=== PATIENT | female | born 1995 | race Caucasian/White ===

== ENCOUNTER 2017-08-18 13:31 | Inpatient (IN) | payer OTHER ==
[~2017-08-18] VITALS: Ht 170.2 cm; Wt 58.5 kg
[2017-08-18] MEDS ORDERED: KETOROLAC TROMETHAMINE 30 MG/ML VIAL IV STA (13:52)
[2017-08-18] MEDS ORDERED: AMPICILLIN/SULBACTAM SOD INJ 3,000 MG in SODIUM CHLORIDE 0.9% 100ML 100 ML IV ONE (14:00)
[2017-08-18] MEDS ORDERED: MoRPHine SULFATE 4 MG/ML 1 ML CARP\\VIAL IV STA (14:01)
--- NOTE | 2017-08-18 14:21 | DIAGNOSTIC IMAGING REPORT ---
CHEST ONE VIEW PORTABLE CLINICAL HISTORY: 22 years-old Female presenting with fever, chest pain. TECHNIQUE: Portable upright AP view of the chest was obtained. COMPARISON: None. FINDINGS: Cardiomediastinal silhouette normal. Lungs and pleural spaces clear. Osseous structures normal. Upper abdomen normal. IMPRESSION: 1. No acute cardiopulmonary disease. Electronically signed by: Chris Marcum M.D. 08/18/2017 2:19 PM Dictated Date/Time: 08/18/2017 2:19 PM
[2017-08-18] MEDS ORDERED: CLON0.5T3 PO (14:23)
[2017-08-18] MEDS ORDERED: TRAZ50TA35 PO (14:23)
[2017-08-18] MEDS ORDERED: DOXY100C76 PO (14:23)
[2017-08-18] MEDS ORDERED: PRED20TA2 PO (14:23)
[2017-08-18] MEDS ORDERED: SERT-234 PO (14:23)
[2017-08-18] MEDS ORDERED: QVRINH80 INH (14:23)
[2017-08-18 14:38] LABS: ISTAT IONIZED CALCIUM 1.11 mmol/l; ISTAT POTASSIUM 3.2 mEq/L (3.3-5.0)
[2017-08-18 14:51] LABS: HEMATOCRIT 37.9 % (37-47); HEMOGLOBIN 12.8 g/dL (12.0-16.0); MEAN CELL VOLUME 83.3 fL (80-100); MEAN CORPUSCULAR HEMOGLOBIN 28.1 pg (25-34); MEAN CORPUSCULAR HGB CONC 33.8 g/dl (32-36); PLATELET COUNT 330 K/uL (130-400); RED CELL DISTRIBUTION WIDTH CV 14.2 % (11.5-14.5); WHITE BLOOD COUNT 36.64 K/uL (4.8-10.8)
[2017-08-18 15:01] LABS: ALBUMIN 2.9 gm/dl (3.4-5.0); ALT/SGPT 9 U/L (12-78); BLOOD UREA NITROGEN 10 mg/dl (7-18); CARBON DIOXIDE 27 mmol/L (21-32); CREATININE 1.15 mg/dl (0.60-1.20); GLUCOSE 121 mg/dl (70-99); POTASSIUM 3.1 mmol/L (3.5-5.1); SODIUM 128 mmol/L (136-145)
[2017-08-18 15:06] LABS: ALKALINE PHOSPHATASE 99 U/L (45-117); AST/SGOT 17 U/L (15-37); CKMB < 0.5 ng/ml (0.5-3.6); TOTAL PROTEIN 7.9 gm/dl (6.4-8.2)
--- NOTE | 2017-08-18 15:19 | DIAGNOSTIC IMAGING REPORT ---
L BREAST LIMITED UNILATERAL CLINICAL HISTORY: 22 years-old Female presenting with r/o abscess, recent diagnosis of mastitis in the left breast, increasing left breast pain. TECHNIQUE: Real-time grayscale Doppler ultrasound imaging of the left breast was performed for a focused evaluation at the site of clinical concern. Color Doppler ultrasound imaging was also performed. COMPARISON: None. FINDINGS: Diffusely heterogeneous fat. Additionally a focal irregular hypoechoic 5.5 x 5.2 x 3.7 cm masslike region with internal vascularity on power Doppler in the subareolar region. Subcutaneous edema also noted evidence by dilated lymphatics. IMPRESSION: 1. Findings suggest significant inflammatory changes or phlegmonous changes in the subareolar region. No well-defined abscess evidenced by internal vascularity of the hypoechoic region delineated on ultrasound. No drainable fluid collection. Electronically signed by: Chris Marcum M.D. 08/18/2017 3:17 PM Dictated Date/Time: 08/18/2017 3:15 PM
[2017-08-18 15:28] LABS: BASO % 0.1 %; BASO ABS # 0.04 K/uL (0-0.2); IG# 0.43 K/uL (0.00-0.02); LYMPH % 1.9 %; MONO % 6.3 %; NEUT % 90.5 %; NEUT ABS # 33.17 K/uL (1.4-6.5)
[2017-08-18] MEDS ORDERED: VANCOMYCIN 1GM ED/ASU OMNICELL IV STA (15:29)
[2017-08-18 15:53] VITALS: O2SAT 99; Ht 170.2 cm; Wt 58.5 kg
[2017-08-18] MEDS ORDERED: ALUMINUM/MAGNESIUM/SIMETH (MAALOX MAX) 30 ML UDC PO PRN (16:15)
[2017-08-18] MEDS ORDERED: MAGNESIUM HYDROXIDE SUSP 30 ML UDC PO PRN (16:15)
[2017-08-18] MEDS ORDERED: TRAZODONE HCL 50 MG TAB PO PRN (16:15)
[2017-08-18] MEDS ORDERED: PIPERACILL/TAZOBAC CONSULT ACTIVE PRN (16:15)
[2017-08-18] MEDS ORDERED: VANCOMYCIN CONSULT ACTIVE PRN (16:15)
--- NOTE | 2017-08-18 16:27 | History and Physical ---
History & Physical Date & Time of Service: Aug 18, 2017 at 16:15 Chief Complaint: Chest Pain, Infection In Boob Primary Care Physician: No Doctor, Assigned History of Present Illness 22 years old female with Hx of asthma and anxiety p/w left breast cellulitis. she was in a trip for [place] 10 days ago but she did not get into the ocean , just swam in the pool. had a bee sting in her right hand but no other insects bites one week ago she had an asthma attack for which she was taking prednisone and inhalers. 3 days ago she started having pain and swelling in her left breast. she went to urgent care facility yesterday and was given doxycyclin which failed to control her symptoms. her left breast continues to progress and later developed erythema and swelling in that breast. no discharge, no abrasions or skin cuts. also has painful LN in her left axilla. did not check her temp but has been feeling hot and feverish. she has been taking tylenol for that. she does not have diabetes. Past Medical/Surgical History Medical Problems: (1) Acute mastitis of left breast (2) Asthma exacerbation Family History Patient reports no known family medical history. Social History Smoking Status: Never Smoker Drug Use: none Marital Status: in relationship Occupational Status: [employer] student Allergies Coded Allergies: Amoxicillin (Verified Allergy, Unknown, vomiting, 07/19/17) Home Medications Scheduled Beclomethasone Dip (Qvar), 1 PUFF INH DAILY Clonazepam (Klonopin), 0.5 MG PO NEEDED Doxycycline Monohydrate (Monodox), 100 MG PO BID Prednisone (Prednisone Tab), 20 MG PO DIRECTED Sertraline (Zoloft), 150 MG PO DAILY Trazodone Hcl (Trazodone), 50 MG PO NEEDED Review of Systems Review of system Constitutional: positive fever /chills / sweats / no weakness / no fatigue Eyes: no blurring of vision / no eye pain / no discharge / no redness ENT: no hearing loss / no epistaxis /no swallowing problems Respiratory: no cough / no wheezing / no SOB / no hemoptysis Left breast swollen/erythematous and painful, no discharge Cardiovascular: no Chest pain / no lower extremity edema / no palpitation Abdomen: no pain / no nausea / no vomiting / no constipation Musculoskeletal: no joint pain / no muscle pain / no joint swelling Genitourinary: no dysuria / no incontinence / no urinary retention Neurologic: no focal weakness / no numbness/tingling / no ataxia Psychiatric: no depression symptoms / no anxiety / no insomnia Endocrine: no excessive thirst / no excessive urination Hematologic: no abnormal bleeding / no bruising / no LN swelling Skin: No rash / no pallor Physical Exam Vital Signs Date Time Temp Pulse Resp B/P (MAP) Pulse Ox O2 Delivery O2 Flow Rate FiO2 08/18/17 15:29 111 112/64 99 Room Air 08/18/17 14:10 122 109/91 99 Room Air 08/18/17 13:37 36.7 127 18 116/67 99 Room Air Physical examination Left breast swollen/erythematous and tender, no discharge (examined in the presence of her mother and the nurse) General patient appears to be comfortable, not in acute distress HEENT: Atraumatic , normocephalic /no jaundice /no pallor /anicteric /no dry mucous membrane /normal external ear inspection Neck: Supple /no swelling /central trach Heart: S1/S2 normal/regular rate and rhythm/no gallop /no rub /no murmur Lungs: Clear to auscultation bilaterally/normal chest with expansion/no rhonchi/ no rales/no wheezing/no use of accessory muscles of respiration Abdomen: Soft/nontender/no guarding/no rebound/no organomegaly/no pulsatile mass Musculoskeletal: No swelling/no edema/no tenderness/normal range of motion Neuro exam: Awake alert oriented 3/cranial nerves II through XII appear to be intact/sensation intact/moves all extremities/no abnormal movements Psychiatric evaluation: No depressed mood/normal affect Skin: No rash on exposed skin area/no erythema Extremity: Normal pulse/no pitting edema/no clubbing or cyanosis Endocrine/lymphatic: No obvious lymphadenopathy /no lymphedema Diagnostics Laboratory Results Results Past 24 Hours Test 08/18/17 14:15 08/18/17 14:19 08/18/17 14:21 Range/Units White Blood Count 36.64 4.8-10.8 K/uL Red Blood Count 4.55 4.2-5.4 M/uL Hemoglobin 12.8 12.0-16.0 g/dL Hematocrit 37.9 37-47 % Mean Corpuscular Volume 83.3 80-100 fL Mean Corpuscular Hemoglobin 28.1 25-34 pg Mean Corpuscular Hemoglobin Concent 33.8 32-36 g/dl Platelet Count 330 130-400 K/uL Mean Platelet Volume 10.0 7.4-10.4 fL Neutrophils (%) (Auto) 90.5 % Lymphocytes (%) (Auto) 1.9 % Monocytes (%) (Auto) 6.3 % Eosinophils (%) (Auto) 0.0 % Basophils (%) (Auto) 0.1 % Neutrophils # (Auto) 33.17 1.4-6.5 K/uL Lymphocytes # (Auto) 0.70 1.2-3.4 K/uL Monocytes # (Auto) 2.30 0.11-0.59 K/uL Eosinophils # (Auto) 0.00 0-0.5 K/uL Basophils # (Auto) 0.04 0-0.2 K/uL RDW Standard Deviation 43.0 36.4-46.3 fL RDW Coefficient of Variation 14.2 11.5-14.5 % Immature Granulocyte % (Auto) 1.2 % Immature Granulocyte # (Auto) 0.43 0.00-0.02 K/uL Dohle Bodies 1+ Large Platelets 1+ Prothrombin Time 10.9 9.0-12.0 SECONDS Prothromb Time International Ratio 1.0 0.9-1.1 Sodium Level 128 136-145 mmol/L Potassium Level 3.1 3.5-5.1 mmol/L Chloride Level 92 98-107 mmol/L Carbon Dioxide Level 27 21-32 mmol/L Anion Gap 9.0 15.0 16-25 mmol/L Blood Urea Nitrogen 10 7-18 mg/dl Creatinine 1.15 0.60-1.20 mg/dl Est Creatinine Clear Calc Drug Dose 72.1 ml/min Estimated GFR () 79.3 Estimated GFR (Non- 68.4 BUN/Creatinine Ratio 9.0 10-20 Random Glucose 121 70-99 mg/dl Calcium Level 9.0 8.5-10.1 mg/dl Magnesium Level 1.9 1.8-2.4 mg/dl Total Bilirubin 0.6 0.2-1 mg/dl Direct Bilirubin 0.2 0-0.2 mg/dl Aspartate Amino Transf (AST/SGOT) 17 15-37 U/L Alanine Aminotransferase (ALT/SGPT) 9 12-78 U/L Alkaline Phosphatase 99 45-117 U/L Total Creatine Kinase 40 26-192 U/L Creatine Kinase MB < 0.5 0.5-3.6 ng/ml Creatine Kinase MB Ratio 0-3.0 Troponin I < 0.015 0-0.045 ng/ml Total Protein 7.9 6.4-8.2 gm/dl Albumin 2.9 3.4-5.0 gm/dl Bedside Hemoglobin 13.6 12.0-16.0 g/dl Bedside Hematocrit 40 37-47 % Bedside Sodium 130 135-144 mEq/L Bedside Potassium 3.2 3.3-5.0 mEq/L Bedside Chloride 92 101-112 mEq/L Bedside Total CO2 27 24-31 mEq/l Bedside Blood Urea Nitrogen 10 7-18 mg/dl Bedside Creatinine 1.0 mg/dl Bedside Glucose (other) 137 70-99 mg/dl Bedside Ionized Calcium (Maverick) 1.11 mmol/l Bedside Lactic Acid Venous 1.60 0.90-1.70 mmol/L Microbiology Results 08/18/17 Blood Culture, Received Pending 08/18/17 Blood Culture, Received Pending Impression Assessment and Plan 22 years old female with Hx of asthma and anxiety p/w acute left breast cellulitis. assessment: severe sepsis POA secondary to below acute left breast cellulitis. Asthma without exacerbation Anxiety Plan left breast US was negative for abscess but I think it needs to be repeated before discharge admit to [facility] consult ID initiate Vanco/zosyn (failed doxycyclin) IVF hydration blood Cx motrin q8 HOURS X 2 days morphine prn severe pain lovenox for DVT prophylaxis check HgbA1C R/O underlying diabetes Resuscitation Status VTE Prophylaxis Will order VTE Prophylaxis: Yes
[2017-08-18] MEDS ORDERED: POTASSIUM CHLORIDE 20 MEQ TABCR PO ONE (17:00)
[2017-08-18] MEDS ORDERED: POTASSIUM CHLORIDE 10 MEQ TABCR ONE (17:01)
[2017-08-18 17:27] VITALS: BP 109/60; PULSE 112; TEMP 38.2; O2SAT 99
[2017-08-18] MEDS: ACETAMINOPHEN 325 MG TAB PO PRN (17:34)
--- NOTE | 2017-08-18 18:17 | EMERGENCY ROOM VISIT NOTE ---
History Report prepared by Peewee: Darline bIanez Under the Supervision of: Dr. Glen Mas D.O. First contact with patient: 13:42 Chief Complaint: INFECTION Stated Complaint: CHEST PAIN, INFECTION IN BOOB History of Present Illness The patient is a 22 year old female who presents to the Emergency Room with complaints of increased swelling to her left breast beginning , three days ago. The patient went to [facility] yesterday and was told she had an infection in her left breast and was put on doxycycline. The patient notes pain and redness to her left breast. The patient states she had an asthma attack last week where she was given a nebulizer and a steroid. She reports she started to have chest pain on and she thought she had bruising on her left breast. Since , her left breast has been increasingly swollen and tender. She denies any discharge from her breast. She reports her pain worsens with taking a deep breath. The patient notes a cough, hot and cold sweats, back pain, and neck pain. The patient denies any recent trauma. The patient was in [place] two weeks ago. Pt denies headache, change in vision, fevers, shortness of breath, nausea, vomiting, diarrhea, pain with urination, and melena. Source of History: patient Onset: 3 days ago Position: other (left breast) Quality: other (swelling) Timing: other (increasing) Modifying Factors (Worsening): breathing Associated Symptoms: + chest pain, + back pain, No fevers, No SOB, No nausea , No urinary symptoms Review of Systems See HPI for pertinent positives & negatives. A total of 10 systems reviewed and were otherwise negative. Past Medical & Surgical Medical Problems: (1) Acute mastitis of left breast Family History Patient reports no known family medical history. Social History Smoking Status: Never Smoker Drug Use: none Marital Status: in relationship Occupation Status: [employer] student Current/Historical Medications Scheduled Beclomethasone Dip (Qvar), 1 PUFF INH DAILY Clonazepam (Klonopin), 0.5 MG PO NEEDED Doxycycline Monohydrate (Monodox), 100 MG PO BID Prednisone (Prednisone Tab), 20 MG PO DIRECTED Sertraline (Zoloft), 150 MG PO DAILY Trazodone Hcl (Trazodone), 50 MG PO NEEDED Allergies Coded Allergies: Amoxicillin (Verified Adverse Reaction, Mild, vomiting, 08/18/17) Physical Exam Vital Signs Date Time Temp Pulse Resp B/P (MAP) Pulse Ox O2 Delivery O2 Flow Rate FiO2 08/18/17 15:53 99 Room Air 08/18/17 15:29 111 112/64 99 Room Air 08/18/17 14:10 122 109/91 99 Room Air 08/18/17 13:37 36.7 127 18 116/67 99 Room Air Physical Exam GENERAL: Sitting up in bed, alert, well appearing, well nourished, no distress, non-toxic EYE EXAM: normal conjunctiva. OROPHARYNX: no exudate, no erythema, lips, buccal mucosa, and tongue normal and mucous membranes are moist NECK: supple, no nuchal rigidity, no adenopathy, non-tender LUNGS: Clear to auscultation. Normal chest wall mechanics HEART: Tachycardic, no murmurs, S1 normal and S2 normal CHEST: Left breast slight engorged and erythematous in lateral superior aspect without drainage or induration. Mild bruising on right superior aspect of left breast. ABDOMEN: abdomen soft, non-tender, normo-active bowel sounds, no masses, no rebound or guarding. BACK: Back is symmetrical on inspection and there is no deformity, no midline tenderness, no CVA tenderness. SKIN: no rashes and no bruising UPPER EXTREMITIES: upper extremities are grossly normal. LOWER EXTREMITIES: No pitting edema. NEURO EXAM: Normal sensorium, cranial nerves II-XII grossly intact, normal speech, no gross weakness of arms, no gross weakness of legs. Medical Decision & Procedures ER Provider Diagnostic Interpretation: Radiology results as stated below per my review and the radiologist's interpretation: L BREAST LIMITED UNILATERAL COMPARISON: None. FINDINGS: Diffusely heterogeneous fat. Additionally a focal irregular hypoechoic 5.5 x 5.2 x 3.7 cm masslike region with internal vascularity on power Doppler in the subareolar region. Subcutaneous edema also noted evidence by dilated lymphatics. IMPRESSION: 1. Findings suggest significant inflammatory changes or phlegmonous changes in the subareolar region. No well-defined abscess evidenced by internal vascularity of the hypoechoic region delineated on ultrasound. No drainable fluid collection. Electronically signed by: Chris Marcum M.D. CHEST ONE VIEW PORTABLE FINDINGS: Cardiomediastinal silhouette normal. Lungs and pleural spaces clear. Osseous structures normal. Upper abdomen normal. IMPRESSION: 1. No acute cardiopulmonary disease. Electronically signed by: Chris Marcum M.D. Laboratory Results 08/18/17 14:15 Red Blood Count 4.55, Mean Corpuscular Volume 83.3, Mean Corpuscular Hemoglobin 28.1, Mean Corpuscular Hemoglobin Concent 33.8, Mean Platelet Volume 10.0, Neutrophils (%) (Auto) 90.5, Lymphocytes (%) (Auto) 1.9, Monocytes (%) (Auto) 6.3, Eosinophils (%) (Auto) 0.0, Basophils (%) (Auto) 0.1, Neutrophils # (Auto) 33.17, Lymphocytes # (Auto) 0.70, Monocytes # (Auto) 2.30, Eosinophils # (Auto) 0.00, Basophils # (Auto) 0.04 08/18/17 14:15 Test 08/18/17 14:15 08/18/17 14:19 08/18/17 14:21 White Blood Count 36.64 K/uL (4.8-10.8) Red Blood Count 4.55 M/uL (4.2-5.4) Hemoglobin 12.8 g/dL (12.0-16.0) Hematocrit 37.9 % (37-47) Mean Corpuscular Volume 83.3 fL (80-100) Mean Corpuscular Hemoglobin 28.1 pg (25-34) Mean Corpuscular Hemoglobin Concent 33.8 g/dl (32-36) Platelet Count 330 K/uL (130-400) Mean Platelet Volume 10.0 fL (7.4-10.4) Neutrophils (%) (Auto) 90.5 % Lymphocytes (%) (Auto) 1.9 % Monocytes (%) (Auto) 6.3 % Eosinophils (%) (Auto) 0.0 % Basophils (%) (Auto) 0.1 % Neutrophils # (Auto) 33.17 K/uL (1.4-6.5) Lymphocytes # (Auto) 0.70 K/uL (1.2-3.4) Monocytes # (Auto) 2.30 K/uL (0.11-0.59) Eosinophils # (Auto) 0.00 K/uL (0-0.5) Basophils # (Auto) 0.04 K/uL (0-0.2) RDW Standard Deviation 43.0 fL (36.4-46.3) RDW Coefficient of Variation 14.2 % (11.5-14.5) Immature Granulocyte % (Auto) 1.2 % Immature Granulocyte # (Auto) 0.43 K/uL (0.00-0.02) Dohle Bodies 1+ Large Platelets 1+ Erythrocyte Sedimentation Rate 86 mm/hr (0-21) Prothrombin Time 10.9 SECONDS (9.0-12.0) Prothromb Time International Ratio 1.0 (0.9-1.1) Est Creatinine Clear Calc Drug Dose 72.1 ml/min Estimated GFR () 79.3 Estimated GFR (Non- 68.4 BUN/Creatinine Ratio 9.0 (10-20) Calcium Level 9.0 mg/dl (8.5-10.1) Magnesium Level 1.9 mg/dl (1.8-2.4) Total Bilirubin 0.6 mg/dl (0.2-1) Direct Bilirubin 0.2 mg/dl (0-0.2) Aspartate Amino Transf (AST/SGOT) 17 U/L (15-37) Alanine Aminotransferase (ALT/SGPT) 9 U/L (12-78) Alkaline Phosphatase 99 U/L (45-117) Total Creatine Kinase 40 U/L (26-192) Creatine Kinase MB < 0.5 ng/ml (0.5-3.6) Creatine Kinase MB Ratio (0-3.0) Troponin I < 0.015 ng/ml (0-0.045) C-Reactive Protein 33.30 mg/dl (0-0.29) Total Protein 7.9 gm/dl (6.4-8.2) Albumin 2.9 gm/dl (3.4-5.0) Bedside Hemoglobin 13.6 g/dl (12.0-16.0) Bedside Hematocrit 40 % (37-47) Bedside Sodium 130 mEq/L (135-144) Bedside Potassium 3.2 mEq/L (3.3-5.0) Bedside Chloride 92 mEq/L (101-112) Bedside Total CO2 27 mEq/l (24-31) Anion Gap 15.0 mmol/L (16-25) Bedside Blood Urea Nitrogen 10 mg/dl (7-18) Bedside Creatinine 1.0 mg/dl Bedside Glucose (other) 137 mg/dl (70-99) Bedside Ionized Calcium (Maverick) 1.11 mmol/l Bedside Lactic Acid Venous 1.60 mmol/L (0.90-1.70) Laboratory results per my review. Medications Administered Medications (Trade) Dose Ordered Sig/Gisella Route Start Time Stop Time Status Last Admin Dose Admin Ketorolac Tromethamine (Toradol Inj) 30 mg NOW STAT IV 08/18/17 13:52 08/18/17 13:53 DC 08/18/17 14:11 30 MG Ampicillin Sodium/ Sulbactam Sodium 3000 mg/Sodium Chloride 108 ml @ 200 mls/hr ONE ONCE IV 08/18/17 14:00 08/18/17 14:32 DC 08/18/17 14:35 200 MLS/HR Morphine Sulfate (MoRPHine SULFATE INJ) 4 mg NOW STAT IV 08/18/17 14:01 08/18/17 14:02 DC 08/18/17 14:11 4 MG Vancomycin HCl (Vancomycin 1gm/ 270ml Nss) 1 gm NOW STAT IV 08/18/17 15:29 08/18/17 15:35 DC 08/18/17 15:56 1 GM ECG Per My Interpretation Indication: chest pain Rate (beats per minute): 116 Rhythm: sinus tachycardia Findings: other (No PVC normal intervals) ED Course ED COURSE: Vital signs were reviewed and showed tachycardic The patients medical record was reviewed The above diagnostic studies were performed and reviewed. ED treatments and interventions as stated above. 1342: The patient was evaluated in room A11B. A complete history and physical examination was performed. 1352: Ordered Toradol Inj 30 mg IV. 1400: Ordered Ampicillin Sodium/Sulbactam Sodium 3000 mg/Sodium CHlorise 108 ml @ 200 mls/hr IV. 1401: Ordered Morphine Sulfate 4 mg IV. 1519: The patient is over at ultrasound. 1529: Ordered Vancomycin HCL 1 gm IV. 1533: I updated the patient on the treatment plan. 1546: I reviewed the patient's case [place] Te[place] [place] will evaluate the patient for further management. 1550: Upon reevaluation, the patient is resting comfortably.I discussed my findings with the patient and she understands and agrees with the treatment plan. Based on the patients age, coexisting illnesses, exam and lab findings the decision to treat as an inpatient was made. The patient remained stable while under my care. The patient will be evaluated for further management. Medical Decision Differential diagnosis: Etiologies such as cellulitis, abscess, MRSA infection, DVT, necrotizing fasciitis, dermatitis, drug eruption, as well as others were entertained. Patient is a 22-year-old female who presents the ER who presents the ER for severe pain in the left breast. On exam she has an overt cellulitis. She is tachycardic. White count 35,000. IV was established as blood work was previously drawn. Sodium was slightly low 128. Patient was given IV antibiotics, fluids and admitted to internal medicine following ultrasound which showed cellulitis. She is likely septic secondary to the left breast cellulitis. Medication Reconcilliation Current Medication List: was personally reviewed by me Blood Pressure Screening Patient's blood pressure: Normal blood pressure Consults Time Called: 1540 Consulting Physician: Dr. Tere Kang Returned Call: 1545 I reviewed the patient's case with Dr. Tere Kang. He will evaluate the patient for further management. Impression Primary Impression: Sepsis Additional Impressions: Mastitis Hypokalemia Scribe Attestation The scribe's documentation has been prepared under my direction and personally reviewed by me in its entirety. I confirm that the note above accurately reflects all work, treatment, procedures, and medical decision making performed by me. Departure Information Dispostion Being Evaluated By Hospitalist Referrals No Doctor, Assigned (PCP) Patient Instructions My [facility] Problem Qualifiers Primary Impression: Sepsis Sepsis type: sepsis due to unspecified organism Qualified Codes: A41.9 - Sepsis, unspecified organism
[2017-08-18] MEDS: LACTOBACILLUS ACIDOPHILUS (FLORANEX) TAB PO SCH (18:29)
[2017-08-18] MEDS: NSS + 20MEQ KCL 1000ML 1,000 ML IV SCH (18:29)
[2017-08-18] MEDS: MoRPHine SULFATE 2 MG/ML CARP IV PRN ×2 (18:46→23:50)
[2017-08-18 19:00] VITALS: TEMP 39; O2SAT 99
--- NOTE | 2017-08-18 19:03 | Pharmacy Progress Note ---
Pharmacy Antibiotic Consult Date of Service: Aug 18, 2017. Pharmacy Dosing Scope Pharmacy is consulted to initiate Vancomycin/Zosyn IV dosing therapy, order appropriate labs and adjust drug dose/frequency. Subjective The patient is a 22 year old female admitted on Aug 18, 2017 at 16:14 with left breast cellulitis/mastitis. Objective Height (Feet): 5 Height (Inches): 7.00 Weight (Kilograms): 58.500 Lab Results (24hrs): Test 08/18/17 14:15 08/18/17 14:19 08/18/17 14:21 08/18/17 17:00 White Blood Count 36.64 K/uL (4.8-10.8) Red Blood Count 4.55 M/uL (4.2-5.4) Hemoglobin 12.8 g/dL (12.0-16.0) Hematocrit 37.9 % (37-47) Mean Corpuscular Volume 83.3 fL (80-100) Mean Corpuscular Hemoglobin 28.1 pg (25-34) Mean Corpuscular Hemoglobin Concent 33.8 g/dl (32-36) Platelet Count 330 K/uL (130-400) Mean Platelet Volume 10.0 fL (7.4-10.4) Neutrophils (%) (Auto) 90.5 % Lymphocytes (%) (Auto) 1.9 % Monocytes (%) (Auto) 6.3 % Eosinophils (%) (Auto) 0.0 % Basophils (%) (Auto) 0.1 % Neutrophils # (Auto) 33.17 K/uL (1.4-6.5) Lymphocytes # (Auto) 0.70 K/uL (1.2-3.4) Monocytes # (Auto) 2.30 K/uL (0.11-0.59) Eosinophils # (Auto) 0.00 K/uL (0-0.5) Basophils # (Auto) 0.04 K/uL (0-0.2) RDW Standard Deviation 43.0 fL (36.4-46.3) RDW Coefficient of Variation 14.2 % (11.5-14.5) Immature Granulocyte % (Auto) 1.2 % Immature Granulocyte # (Auto) 0.43 K/uL (0.00-0.02) Dohle Bodies 1+ Large Platelets 1+ Erythrocyte Sedimentation Rate 86 mm/hr (0-21) Prothrombin Time 10.9 SECONDS (9.0-12.0) Prothromb Time International Ratio 1.0 (0.9-1.1) Sodium Level 128 mmol/L (136-145) Potassium Level 3.1 mmol/L (3.5-5.1) Chloride Level 92 mmol/L (98-107) Carbon Dioxide Level 27 mmol/L (21-32) Anion Gap 9.0 mmol/L (3-11) 15.0 mmol/L (16-25) Blood Urea Nitrogen 10 mg/dl (7-18) Creatinine 1.15 mg/dl (0.60-1.20) Est Creatinine Clear Calc Drug Dose 72.1 ml/min Estimated GFR () 79.3 Estimated GFR (Non- 68.4 BUN/Creatinine Ratio 9.0 (10-20) Random Glucose 121 mg/dl (70-99) Calcium Level 9.0 mg/dl (8.5-10.1) Magnesium Level 1.9 mg/dl (1.8-2.4) Total Bilirubin 0.6 mg/dl (0.2-1) Direct Bilirubin 0.2 mg/dl (0-0.2) Aspartate Amino Transf (AST/SGOT) 17 U/L (15-37) Alanine Aminotransferase (ALT/SGPT) 9 U/L (12-78) Alkaline Phosphatase 99 U/L (45-117) Total Creatine Kinase 40 U/L (26-192) Creatine Kinase MB < 0.5 ng/ml (0.5-3.6) Creatine Kinase MB Ratio (0-3.0) Troponin I < 0.015 ng/ml (0-0.045) C-Reactive Protein 33.30 mg/dl (0-0.29) Total Protein 7.9 gm/dl (6.4-8.2) Albumin 2.9 gm/dl (3.4-5.0) Bedside Hemoglobin 13.6 g/dl (12.0-16.0) Bedside Hematocrit 40 % (37-47) Bedside Sodium 130 mEq/L (135-144) Bedside Potassium 3.2 mEq/L (3.3-5.0) Bedside Chloride 92 mEq/L (101-112) Bedside Total CO2 27 mEq/l (24-31) Bedside Blood Urea Nitrogen 10 mg/dl (7-18) Bedside Creatinine 1.0 mg/dl Bedside Glucose (other) 137 mg/dl (70-99) Bedside Ionized Calcium (Maverick) 1.11 mmol/l Bedside Lactic Acid Venous 1.60 mmol/L (0.90-1.70) Urine Color DK YELLOW Urine Appearance CLEAR (CLEAR) Urine pH 5.5 (4.5-7.5) Urine Specific [place] 1.023 (1.000-1.030) Urine Protein 2+ (NEG) Urine Glucose (UA) NEG (NEG) Urine Ketones TRACE (NEG) Urine Occult Blood NEG (NEG) Urine Nitrite NEG (NEG) Urine Bilirubin NEG (NEG) Urine Urobilinogen NEG (NEG) Urine Leukocyte Esterase NEG (NEG) Urine WBC (Auto) 5-10 /hpf (0-5) Urine RBC (Auto) 0-4 /hpf (0-4) Urine Hyaline Casts (Auto) 10-30 /lpf (0-5) Urine Epithelial Cells (Auto) >30 /lpf (0-5) Urine Bacteria (Auto) NEG (NEG) Urine Renal Epithelial Cells 0-5 /lpf (0-5) Micro Results: Item Value Date Time Blood Culture Received 08/18/17 1429 Blood Pending Blood Culture Received 08/18/17 1415 Blood Pending Recent Pertinent Medications Item Value Date Time Ampicillin Sodium/ 108 ml @ 200 mls/hr 08/18/17 1400 Sulbactam Sodium ONE ONCE/IV 08/18/17 1435 3000 mg/Sodium Chloride Vancomycin HCl 1 gm 08/18/17 1529 (Vancomycin 1gm/ NOW STAT/IV 08/18/17 1556 270ml Nss) Piperacillin Sod/ 115 ml @ 28.75 mls/hr 08/18/17 2000 Tazobactam Sod Q8H/IV 3.375 gm/Dextrose Assessment & Plan Loading dose: Vancomycin 1000 mg (~17 mg/kg) IV X 1 dose then: Vancomycin 1000 mg IV every 12 hours. Goal peak level estimate: between 30 - 40 mcg/mL. Goal trough level estimate: between 13 - 20 mcg/mL. Trough or random level has been ordered for: 08/21/17 before the noon dose. Zosyn 3.375 g Extended infusion every 8 hours for creatinine clearance greater than 20 mL/min Pharmacy will continue to follow and will adjust dose/frequency as necessary. Thank you
[2017-08-18] MEDS ORDERED: IBUPROFEN 200 MG TAB PO ONE (19:30)
[2017-08-18] MEDS ORDERED: NURSING VERBAL MED ORDER ONE (19:30)
[2017-08-18] MEDS: PIPERACILL/TAZOBAC IV 3.375 GM in DEXTROSE 5% 100ML 100 ML IV SCH (20:27)
[2017-08-18] MEDS: CLONAZEPAM 0.5 MG TAB PO SCH (20:33)
[2017-08-18] MEDS: IBUPROFEN 200 MG TAB PO SCH (20:33)
[2017-08-18] MEDS: ENOXAPARIN 30 MG/0.3 ML SYR SQ SCH (20:35)
[2017-08-18 21:22] VITALS: PULSE 110; TEMP 37.6; O2SAT 98
[2017-08-18 23:05] VITALS: BP 100/60; PULSE 112; TEMP 37.3; O2SAT 95
[2017-08-18 23:35] VITALS: TEMP 37.1
[2017-08-18] MEDS: VANCOMYCIN IV 1,000 MG in SODIUM CHLORIDE 0.9% 250ML 250 ML IV SCH (23:50)
[2017-08-19] MEDS: PIPERACILL/TAZOBAC IV 3.375 GM in DEXTROSE 5% 100ML 100 ML IV SCH ×3 (04:09→20:27)
[2017-08-19 04:49] VITALS: TEMP 36.7
[2017-08-19] MEDS: MoRPHine SULFATE 2 MG/ML CARP IV PRN ×3 (05:05→23:47)
[2017-08-19] MEDS: ACETAMINOPHEN 325 MG TAB PO PRN (05:46)
[2017-08-19 06:58] LABS: HEMATOCRIT 39.7 % (37-47); HEMOGLOBIN 13.4 g/dL (12.0-16.0); MEAN CELL VOLUME 83.2 fL (80-100); MEAN CORPUSCULAR HEMOGLOBIN 28.1 pg (25-34); MEAN CORPUSCULAR HGB CONC 33.8 g/dl (32-36); MEAN PLATELET VOLUME 9.7 fL (7.4-10.4); PLATELET COUNT 288 K/uL (130-400); RED CELL DISTRIBUTION WIDTH CV 14.5 % (11.5-14.5); RED CELL DISTRIBUTION WIDTH SD 44.5 fL (36.4-46.3); WHITE BLOOD COUNT 37.91 K/uL (4.8-10.8)
[2017-08-19 07:07] VITALS: BP 96/59; PULSE 99; TEMP 36.8; O2SAT 98
[2017-08-19 07:08] LABS: ALBUMIN 2.3 gm/dl (3.4-5.0); CALCIUM 8.7 mg/dl (8.5-10.1); CREATININE 1.07 mg/dl (0.60-1.20); POTASSIUM 3.5 mmol/L (3.5-5.1)
[2017-08-19 07:15] LABS: TOTAL PROTEIN 6.8 gm/dl (6.4-8.2)
[2017-08-19 07:19] LABS: BASO % 0.2 %; BASO ABS # 0.06 K/uL (0-0.2); EOS % 0.3 %; EOS ABS # 0.13 K/uL (0-0.5); IG# 0.64 K/uL (0.00-0.02); LYMPH % 1.9 %; LYMPH ABS # 0.73 K/uL (1.2-3.4); MONO % 3.4 %; MONO ABS # 1.28 K/uL (0.11-0.59); NEUT % 92.5 %; NEUT ABS # 35.07 K/uL (1.4-6.5)
[2017-08-19 07:45] LABS: HEMOGLOBIN A1C 5.5 % (4.5-5.6)
[2017-08-19] MEDS ORDERED: FAMOTIDINE IV INJ 20 MG in SYRINGE 3 ML IV SCH (09:00)
[2017-08-19] MEDS ORDERED: FAMOTIDINE IV INJ 20 MG in DEXTROSE 5% 100ML 100 ML IV SCH (09:00)
[2017-08-19] MEDS: CLONAZEPAM 0.5 MG TAB PO SCH ×2 (09:01→20:27)
[2017-08-19] MEDS: SERTRALINE HCL 50 MG TAB PO SCH (09:01)
[2017-08-19] MEDS: BECLOMETHASONE DIP HFA 80 MCG 8.7G INH INH SCH (09:01)
[2017-08-19] MEDS: IBUPROFEN 200 MG TAB PO SCH ×3 (09:01→20:28)
[2017-08-19] MEDS: LACTOBACILLUS ACIDOPHILUS (FLORANEX) TAB PO SCH ×3 (09:02→17:55)
[2017-08-19] MEDS: ENOXAPARIN 30 MG/0.3 ML SYR SQ SCH ×2 (09:02→20:32)
--- NOTE | 2017-08-19 09:27 | Hospitalist Progress Note ---
Hospitalist Progress Note Date of Service Aug 19, 2017. (Kayley Baltazar PA-C) Subjective Pt evaluation today including: conversation w/ patient, conversation w/ family , physical exam, chart review, lab review, review of studies Pain: None PO Intake: Good Voiding: no voiding problems The patient was seen and examined this morning. Pt reports still feeling that her breathing is somewhat tight, and that she has difficulty taking deep breaths due to pain in bilateral chest murrell. She denies feeling acutely short of breath at rest or with ambulation with walking. She has been up ambulating the ybarra without difficulty. She has been using proair and QVar routinely as an outpatient for her asthma. Pt left breast seems to be less red today, but still as swollen. She denies any pain involving her left axillary region. She denies any feeling of fever or chills overnight. Additional Comments: Constitutional: No fever, sweats or chills Eyes: No diplopia, no worsening or blurred vision ENT: normal hearing, no trouble swallowing Respiratory: No cough, sputum, dyspnea at rest or on exertion Cardiovascular: No chest pain, tightness or palpitations Abdomen: No pain, nausea, vomiting, diarrhea or constipation Musculoskeletal: No joint pain, calf pain, swelling Neurologic: No weakness, numbness/tingling, or balance problems Psychiatric: No anxiety or depression Skin: No rash or itch (Kayley Baltazar PA-C) Objective Vital Signs Date Time Temp Pulse Resp B/P (MAP) Pulse Ox O2 Delivery O2 Flow Rate FiO2 08/19/17 07:40 Room Air 08/19/17 07:07 36.8 99 15 96/59 (71) 98 Room Air 08/19/17 04:49 36.7 08/18/17 23:35 Room Air 08/18/17 23:35 37.1 08/18/17 23:05 37.3 112 16 100/60 (73) 95 Room Air 08/18/17 21:22 37.6 110 28 98 08/18/17 19:00 99 Room Air 08/18/17 19:00 39.0 08/18/17 17:27 38.2 112 40 109/60 (76) 99 Room Air 08/18/17 17:14 111 113/60 96 3/25/18 15:53 99 Room Air 08/18/17 15:29 111 112/64 99 Room Air 08/18/17 14:10 122 109/91 99 Room Air 08/18/17 13:37 36.7 127 18 116/67 99 Room Air (Kayley Baltazar PA-C) Physical Exam Notes: General: awake, alert, no apparent distress Head: Normocephalic, atraumatic ENT: PERRL, EOMI, no pharyngeal exudate, mucous membranes moist Chest: Clear to auscultation, on room air, no adventitious breath sounds. Breast: Left breast with erythema from the 1oclock to 5 oclock region, slight extension toward axillary region but does not involve axilla. + significantly tender with light palpation, no involvement of the nipple, no open area, no lesions, no topical abrasion, no ecchymosis. Right breast without involvement. Cardiac: Regular rate and rhythm, no murmur, no JVD, normal peripheral pulses, good capillary refill Abdominal: NABS x 4 quadrants, soft, nontender to palpation, no rebound, guarding or tenderness Extremities: Normal inspection, no peripheral edema or erythema, calfs nontender to palpation Psych: Normal mood and affect Neuro: AAO x 3, strength intact bilaterally and related 5/5, no motor deficits, speech is clear, no peripheral sensory deficits (Kayley Baltazar, PAULINO) Laboratory Results Last 24 Hours Test 08/18/17 14:15 08/18/17 14:19 08/18/17 14:21 08/18/17 17:00 White Blood Count 36.64 K/uL Red Blood Count 4.55 M/uL Hemoglobin 12.8 g/dL Hematocrit 37.9 % Mean Corpuscular Volume 83.3 fL Mean Corpuscular Hemoglobin 28.1 pg Mean Corpuscular Hemoglobin Concent 33.8 g/dl Platelet Count 330 K/uL Mean Platelet Volume 10.0 fL Neutrophils (%) (Auto) 90.5 % Lymphocytes (%) (Auto) 1.9 % Monocytes (%) (Auto) 6.3 % Eosinophils (%) (Auto) 0.0 % Basophils (%) (Auto) 0.1 % Neutrophils # (Auto) 33.17 K/uL Lymphocytes # (Auto) 0.70 K/uL Monocytes # (Auto) 2.30 K/uL Eosinophils # (Auto) 0.00 K/uL Basophils # (Auto) 0.04 K/uL RDW Standard Deviation 43.0 fL RDW Coefficient of Variation 14.2 % Immature Granulocyte % (Auto) 1.2 % Immature Granulocyte # (Auto) 0.43 K/uL Dohle Bodies 1+ Large Platelets 1+ Erythrocyte Sedimentation Rate 86 mm/hr Prothrombin Time 10.9 SECONDS Prothromb Time International Ratio 1.0 Sodium Level 128 mmol/L Potassium Level 3.1 mmol/L Chloride Level 92 mmol/L Carbon Dioxide Level 27 mmol/L Anion Gap 9.0 mmol/L 15.0 mmol/L Blood Urea Nitrogen 10 mg/dl Creatinine 1.15 mg/dl Est Creatinine Clear Calc Drug Dose 72.1 ml/min Estimated GFR () 79.3 Estimated GFR (Non- 68.4 BUN/Creatinine Ratio 9.0 Random Glucose 121 mg/dl Calcium Level 9.0 mg/dl Magnesium Level 1.9 mg/dl Total Bilirubin 0.6 mg/dl Direct Bilirubin 0.2 mg/dl Aspartate Amino Transf (AST/SGOT) 17 U/L Alanine Aminotransferase (ALT/SGPT) 9 U/L Alkaline Phosphatase 99 U/L Total Creatine Kinase 40 U/L Creatine Kinase MB < 0.5 ng/ml Creatine Kinase MB Ratio Troponin I < 0.015 ng/ml C-Reactive Protein 33.30 mg/dl Total Protein 7.9 gm/dl Albumin 2.9 gm/dl Bedside Hemoglobin 13.6 g/dl Bedside Hematocrit 40 % Bedside Sodium 130 mEq/L Bedside Potassium 3.2 mEq/L Bedside Chloride 92 mEq/L Bedside Total CO2 27 mEq/l Bedside Blood Urea Nitrogen 10 mg/dl Bedside Creatinine 1.0 mg/dl Bedside Glucose (other) 137 mg/dl Bedside Ionized Calcium ([place]) 1.11 mmol/l Bedside Lactic Acid Venous 1.60 mmol/L Urine Color DK YELLOW Urine Appearance CLEAR Urine pH 5.5 Urine Specific [place] 1.023 Urine Protein 2+ Urine Glucose (UA) NEG Urine Ketones TRACE Urine Occult Blood NEG Urine Nitrite NEG Urine Bilirubin NEG Urine Urobilinogen NEG Urine Leukocyte Esterase NEG Urine WBC (Auto) 5-10 /hpf Urine RBC (Auto) 0-4 /hpf Urine Hyaline Casts (Auto) 10-30 /lpf Urine Epithelial Cells (Auto) >30 /lpf Urine Bacteria (Auto) NEG Urine Renal Epithelial Cells 0-5 /lpf Test 08/19/17 06:02 White Blood Count 37.91 K/uL Red Blood Count 4.77 M/uL Hemoglobin 13.4 g/dL Hematocrit 39.7 % Mean Corpuscular Volume 83.2 fL Mean Corpuscular Hemoglobin 28.1 pg Mean Corpuscular Hemoglobin Concent 33.8 g/dl Platelet Count 288 K/uL Mean Platelet Volume 9.7 fL Neutrophils (%) (Auto) 92.5 % Lymphocytes (%) (Auto) 1.9 % Monocytes (%) (Auto) 3.4 % Eosinophils (%) (Auto) 0.3 % Basophils (%) (Auto) 0.2 % Neutrophils # (Auto) 35.07 K/uL Lymphocytes # (Auto) 0.73 K/uL Monocytes # (Auto) 1.28 K/uL Eosinophils # (Auto) 0.13 K/uL Basophils # (Auto) 0.06 K/uL RDW Standard Deviation 44.5 fL RDW Coefficient of Variation 14.5 % Immature Granulocyte % (Auto) 1.7 % Immature Granulocyte # (Auto) 0.64 K/uL Sodium Level 131 mmol/L Potassium Level 3.5 mmol/L Chloride Level 98 mmol/L Carbon Dioxide Level 27 mmol/L Anion Gap 6.0 mmol/L Blood Urea Nitrogen 12 mg/dl Creatinine 1.07 mg/dl Est Creatinine Clear Calc Drug Dose 77.5 ml/min Estimated GFR () 86.5 Estimated GFR (Non- 74.7 BUN/Creatinine Ratio 11.1 Random Glucose 105 mg/dl Estimated Average Glucose 111 mg/dl Hemoglobin A1c 5.5 % Calcium Level 8.7 mg/dl Magnesium Level 1.8 mg/dl Total Bilirubin 0.6 mg/dl Aspartate Amino Transf (AST/SGOT) 12 U/L Alanine Aminotransferase (ALT/SGPT) 8 U/L Alkaline Phosphatase 114 U/L Total Protein 6.8 gm/dl Albumin 2.3 gm/dl Globulin 4.5 gm/dl Albumin/Globulin Ratio 0.5 (Kayley Baltazar, PAULINO) Assessment and Plan Severe sepsis POA secondary to below Acute left breast cellulitis. - left breast US was negative for abscess- may need repeat if worsening appearance or develops area of fluctuance - WBC elevated at 37.9K with left shift, - Continue Vanco/zosyn (started on 08/18 ) -failed doxycycline x 3 days as outpt - Tmax = 39 last night at 7pm, monitor - ID consulted - appreciate recs. - Continue motrin and ms IV for breakthrough pain - encourage ambulation and incentive spirometry - A1C = 5.5 Asthma without exacerbation - Continue proair and Qvar, duonebs QID prn for sob Anxiety - Continue klonopin 0.5 mg Q12H, trazodone 50 mg HS prn insomnia, sertraline 150 mg QAM - pt follows with psychiatry in [facility]. DVT ppx: lovenox Code STATUS: FULL CODE (Kayley Baltazar, PAULINO) Supervising Note Dr. Guajardo I performed a history and physical examination on the patient. I reviewed above note and agree with it. I discussed plan with APC and patient. During my face to face encounter with the patient, I answered all of the patient's questions. Patient was examined in company of her nurse. I agree with above description of her left breast. Patient continues to complain of neck pain. Will give a onetime dose of an additional 400 mg of ibuprofen. Pain appears to be on her rhomboid. Did not find any trigger points on her left back. Will continue to monitor. May consider Flexeril tomorrow. Also will consult gen surgery for her ultrasound finding of a possible mass in her left breast. (Alon Guajardo M.D.)
--- NOTE | 2017-08-19 11:15 | Progress Note ---
Progress Note Date of Service Aug 19, 2017. Progress Note ID Consult Dictated #[id number] A/P: 1. Left breast cellulitis 2. Leukocytosis - likely infection + steroids 3. Asthma exac -Continue abx, follow blood cultures -Would suggest surgical eval -Follow cultures, cbc, was recently started on nebs and steroids [employer] for asthma -Pt requesting neb treatment -Thank you
[2017-08-19] MEDS: VANCOMYCIN IV 1,000 MG in SODIUM CHLORIDE 0.9% 250ML 250 ML IV SCH ×2 (12:24→23:46)
[2017-08-19] MEDS ORDERED: ALBUT/IPRATROP 3MG/0.5MG NEB 3 ML VIAL INH PRN (15:00)
[2017-08-19 15:04] VITALS: BP 106/65; PULSE 101; TEMP 36.7; O2SAT 94
[2017-08-19] MEDS: NSS + 20MEQ KCL 1000ML 1,000 ML IV SCH ×2 (15:10→17:19)
[2017-08-19] MEDS ORDERED: IBUPROFEN 200 MG TAB PO STA (15:40)
--- NOTE | 2017-08-19 17:17 | Surgery Consultation ---
Consultation Date of Consultation: Aug 19, 2017. Attending Physician: Alon Guajardo M.D. History of Present Illness pt is a 22 eligio old female who was admitted to hospital for acute cellulitis on left breast. pt started have left breast pain and redness 5 days ago, pt had T 39 last night, now pt feels better, but pt is still have left breast pain, pt denies fever, no chills, no nipple discharge, denies trauma history. pt was on po prednisone for her asthma attack last week. . Past Medical/Surgical History Medical Problems: (1) Asthma exacerbation Status: Acute (2) Hypokalemia Status: Acute (3) Mastitis Status: Acute (4) Sepsis Status: Acute Family History Patient reports no known family medical history. Social History Smoking Status: Never Smoker Smokeless Tobacco Use: No Alcohol Use: none Drug Use: none Marital Status: in relationship Occupation Status: [employer] student Allergies Coded Allergies: Amoxicillin (Verified Adverse Reaction, Mild, vomiting, 08/18/17) Home Medications Scheduled Beclomethasone Dip (Qvar), 1 PUFF INH DAILY Clonazepam (Klonopin), 0.5 MG PO NEEDED Doxycycline Monohydrate (Monodox), 100 MG PO BID Prednisone (Prednisone Tab), 20 MG PO DIRECTED Sertraline (Zoloft), 150 MG PO DAILY Trazodone Hcl (Trazodone), 50 MG PO NEEDED Current Inpatient Medications Current Inpatient Medications Medications (Trade) Dose Ordered Sig/Gisella Route Start Time Stop Time Status Last Admin Dose Admin Beclomethasone Dipropionate (Qvar 80 Mcg Hfa Inhaler) 1 puffs DAILY INH 08/19/17 09:00 09/18/17 08:59 08/19/17 09:01 1 PUFFS Clonazepam (Klonopin Tab) 0.5 mg Q12H PO 08/18/17 21:00 09/17/17 20:59 08/19/17 09:01 0.5 MG Sertraline HCl (Zoloft Tab) 150 mg DAILY PO 08/19/17 09:00 09/18/17 08:59 08/19/17 09:01 150 MG Trazodone HCl (Desyrel Tab) 50 mg HS PRN PO 08/18/17 16:15 09/17/17 16:14 Enoxaparin Sodium (Lovenox Inj) 30 mg Q12 SQ 08/18/17 21:00 09/17/17 20:59 08/19/17 09:02 30 MG Acetaminophen (Tylenol Tab) 650 mg Q4H PRN PO 08/18/17 16:15 09/17/17 16:14 08/19/17 05:46 650 MG Al Hydrox/Mg Hydrox/Simethicone (Maalox Max Susp) 15 ml Q4H PRN PO 08/18/17 16:15 09/17/17 16:14 Magnesium Hydroxide (Milk Of Magnesia Susp) 30 ml Q6H PRN PO 08/18/17 16:15 09/17/17 16:14 Morphine Sulfate (MoRPHine SULFATE INJ) 1 mg Q4H PRN IV 08/18/17 16:15 09/01/17 16:14 08/19/17 12:35 1 MG Ibuprofen (Advil Tab) 200 mg TID PO 08/18/17 21:00 08/19/17 21:00 08/19/17 13:39 200 MG Potassium Chloride/Sodium Chloride 1,000 ml @ 80 mls/hr [id number] IV 08/18/17 17:45 09/17/17 17:44 08/18/17 18:29 80 MLS/HR Piperacillin Sod/ Tazobactam Sod 3.375 gm/Dextrose 115 ml @ 28.75 mls/ hr Q8H IV 08/18/17 20:00 08/28/17 19:59 08/19/17 12:24 28.75 MLS/HR Miscellaneous Information (Consult) 1 ea UD PRN N/A 08/18/17 16:15 09/17/17 16:14 Vancomycin HCl 1000 mg/Sodium Chloride 270 ml @ 125 mls/hr Q12H IV 08/19/17 00:00 08/28/17 15:29 08/19/17 12:24 125 MLS/HR Miscellaneous Information (Consult) 1 ea UD PRN N/A 08/18/17 16:15 09/17/17 16:14 Lactobacillus Acidophilus (Floranex Tab) 4 tab TIDM PO 08/18/17 17:45 09/17/17 17:59 08/19/17 12:25 4 TAB Famotidine (Pepcid Tab) 20 mg DAILY PO 08/20/17 09:00 09/19/17 08:59 Albuterol/ Ipratropium (Duoneb) 3 ml QID PRN INH 08/19/17 15:00 09/18/17 14:59 Review of Systems Constitutional: + fever Eyes: No worsening of vision, No eye pain, No redness, No discharge, No diplopia, No problem reported ENT: No hearing loss, No unusual epistaxis, No nasal symptoms, No sore throat, No tinnitus, No dental problems, No trouble swallowing, No problem reported Respiratory: + problem reported (asthma), No cough, No sputum, No wheezing, No shortness of breath, No dyspnea on exertion, No dyspnea at rest, No hemoptysis Cardiovascular: + chest pain, + orthopnea, No PND, No edema, No claudication, No palpitations, No problem reported Abdomen: No pain, No nausea, No vomiting, No diarrhea, No constipation, No GI bleeding, No problem reported Musculoskeletal: No joint pain, No muscle pain, No swelling, No calf pain, No problem reported Genitourinary - Female: No dysuria, No urinary frequency, No urinary urgency, No urinary incontinence, No urinary retention, No hematuria, No dysmenorrhea, No menorrhagia, No metrorrhagia, No rash, No vaginal bleeding, No vaginal discharge, No vaginal itching, No vulvodynia, No , No problem reported Neurologic: No memory loss, No paralysis, No weakness, No numbness/tingling, No vertigo, No balance problems, No problem reported Psychiatric: No depression symptoms, No anhedonism, No anxiety, No insomnia, No substance abuse, No problem reported Endocrine: No fatigue, No excessive thirst, No excessive urination, No problem reported Hematologic / Lymphatic: No abnormal bleeding/bruising, No clotting problems, No swollen lymph nodes, No night sweats, No problem reported Integumentary: No rash, No itch, No new/changing skin lesions, No color change , No bleeding, No problem reported Physical Exam Date Time Temp Pulse Resp B/P (MAP) Pulse Ox O2 Delivery O2 Flow Rate FiO2 08/19/17 15:15 Room Air 08/19/17 15:04 36.7 101 16 106/65 (79) 94 Room Air 08/19/17 07:40 Room Air 08/19/17 07:07 36.8 99 15 96/59 (71) 98 Room Air 08/19/17 04:49 36.7 08/18/17 23:35 Room Air 08/18/17 23:35 37.1 08/18/17 23:05 37.3 112 16 100/60 (73) 95 Room Air 08/18/17 21:22 37.6 110 28 98 08/18/17 19:00 99 Room Air 08/18/17 19:00 39.0 08/18/17 17:27 38.2 112 40 109/60 (76) 99 Room Air 08/18/17 17:14 111 113/60 96 General Appearance: WD/WN, no apparent distress Head: normocephalic Eyes: normal inspection ENT: normal ENT inspection Neck: supple, no JVD Respiratory/Chest: chest non-tender, lungs clear Cardiovascular: regular rate, rhythm, no edema, no gallop, no JVD, no murmur Abdomen/GI: normal bowel sounds, non tender, soft, no organomegaly Extremities/Musculoskelatal: normal inspection, no calf tenderness, normal capillary refill Neurologic/Psych: no motor/sensory deficits, alert, normal mood/affect (left side breast, redness tenderness, at 1 to 5 o'clock, no drainage from nipple, no enlarge lymph node on left axillary. ) Laboratory Results Last 24 Hours Test 08/19/17 06:02 White Blood Count 37.91 K/uL Red Blood Count 4.77 M/uL Hemoglobin 13.4 g/dL Hematocrit 39.7 % Mean Corpuscular Volume 83.2 fL Mean Corpuscular Hemoglobin 28.1 pg Mean Corpuscular Hemoglobin Concent 33.8 g/dl Platelet Count 288 K/uL Mean Platelet Volume 9.7 fL Neutrophils (%) (Auto) 92.5 % Lymphocytes (%) (Auto) 1.9 % Monocytes (%) (Auto) 3.4 % Eosinophils (%) (Auto) 0.3 % Basophils (%) (Auto) 0.2 % Neutrophils # (Auto) 35.07 K/uL Lymphocytes # (Auto) 0.73 K/uL Monocytes # (Auto) 1.28 K/uL Eosinophils # (Auto) 0.13 K/uL Basophils # (Auto) 0.06 K/uL RDW Standard Deviation 44.5 fL RDW Coefficient of Variation 14.5 % Immature Granulocyte % (Auto) 1.7 % Immature Granulocyte # (Auto) 0.64 K/uL Sodium Level 131 mmol/L Potassium Level 3.5 mmol/L Chloride Level 98 mmol/L Carbon Dioxide Level 27 mmol/L Anion Gap 6.0 mmol/L Blood Urea Nitrogen 12 mg/dl Creatinine 1.07 mg/dl Est Creatinine Clear Calc Drug Dose 77.5 ml/min Estimated GFR () 86.5 Estimated GFR (Non- 74.7 BUN/Creatinine Ratio 11.1 Random Glucose 105 mg/dl Estimated Average Glucose 111 mg/dl Hemoglobin A1c 5.5 % Calcium Level 8.7 mg/dl Magnesium Level 1.8 mg/dl Total Bilirubin 0.6 mg/dl Aspartate Amino Transf (AST/SGOT) 12 U/L Alanine Aminotransferase (ALT/SGPT) 8 U/L Alkaline Phosphatase 114 U/L Total Protein 6.8 gm/dl Albumin 2.3 gm/dl Globulin 4.5 gm/dl Albumin/Globulin Ratio 0.5 Assessment & Plan L BREAST LIMITED UNILATERAL CLINICAL HISTORY: 22 years-old Female presenting with r/o abscess, recent diagnosis of mastitis in the left breast, increasing left breast pain. TECHNIQUE: Real-time grayscale Doppler ultrasound imaging of the left breast was performed for a focused evaluation at the site of clinical concern. Color Doppler ultrasound imaging was also performed. COMPARISON: None. FINDINGS: Diffusely heterogeneous fat. Additionally a focal irregular hypoechoic 5.5 x 5.2 x 3.7 cm masslike region with internal vascularity on power Doppler in the subareolar region. Subcutaneous edema also noted evidence by dilated lymphatics. IMPRESSION: 1. Findings suggest significant inflammatory changes or phlegmonous changes in the subareolar region. No well-defined abscess evidenced by internal vascularity of the hypoechoic region delineated on ultrasound. No drainable fluid collection. Assessment: pt is a 22 year old female who was admitted to hospital for left breast cellulitis, IMP: left breast cellulitis, small abscess? Plan, repeat U/S study, if any fluid collection present, pt needs I/D. repeat labs in am, will F/U, D/W the plan with pt and her Mom they agree with the plan, I answered all questions,
--- NOTE | 2017-08-19 21:53 | INFECT. DISEASE CONSULTATION ---
DATE OF CONSULTATION: 08/19/2017 HISTORY OF PRESENT ILLNESS: This is a 22-year-old female who was admitted to the hospital with worsening left breast cellulitis. She recently had an asthma exacerbation and was being followed at an urgent care center. She was given prednisone with inhalers and also received a nebulizer. Her mother is present and provides most of the history. She states that she has been using nebulizer in ____ with some improvement but is still having some coughing and wheezing. The patient is requesting a nebulizer during her admission here. A few days ago she noticed tenderness and swelling in the lateral portion of her left breast. She was followed at an urgent care center and was placed on doxycycline. She had 3 doses of this and did not have significant improvement and subsequently came to the ER. She was found to have a leukocytosis as high as 36,000. She also was febrile with a temperature of 39 degrees in the ER. Blood cultures were obtained and are pending. She did have an ultrasound of her breast done which showed a 5.5 x 5.2 x 3.7 cm mass with phlegmonous changes. There is no specific drainable abscess. She was started on vancomycin and Zosyn empirically. She is tolerating antibiotics well. Her major complaint on my examination is coughing and wheezing. She does admit to some pain in the present and states it is mildly better. She is tolerating antibiotics well. She denies any nausea, vomiting or diarrhea. She has no urinary symptoms. Her UA was negative in the ER. She currently is afebrile. Her sed rate is elevated at 86 and her white blood cell count today is 37. Her remaining review of systems is unremarkable. PAST MEDICAL HISTORY: Significant for asthma. PAST SURGICAL HISTORY: Unremarkable. FAMILY HISTORY: Unremarkable. SOCIAL HISTORY: Negative for tobacco use, alcohol or drug use. ALLERGIES: AMOXICILLIN. CURRENT MEDICATIONS: Include QVAR, Zoloft, famotidine, vancomycin, Klonopin, Lovenox, Advil, Zosyn, Floranex, trazodone, Tylenol, Maalox, milk of magnesia, morphine. PHYSICAL EXAMINATION: VITAL SIGNS: She is currently afebrile, pulse 99, respiratory rate 15, blood pressure 96/59, oxygen saturation is 98% on room air. GENERAL: She is awake, alert and oriented x3. She is in no acute distress. HEENT: Mucous membranes are moist. Extraocular muscles are intact. HEART: Regular. LUNGS: Clear. ABDOMEN: Soft, nontender. EXTREMITIES: There is no edema. Examination of the breast does reveal minimal erythema at the lateral portion of the breast. There are no open wounds. There is no drainage. There is tenderness to palpation. It is firm. This is not well demarcated. LABORATORY STUDIES: CBC reveals a white blood cell count of 37.9, hemoglobin 13.4, platelets are 288. Chemistry panel reveals a sodium of 131, potassium 3.5, chloride 98, bicarbonate 27, BUN 12, creatinine 1.0, glucose is 105. LFTs are within normal limits. UA is unremarkable. Blood cultures are pending. IMAGING: As above. ASSESSMENT: 1. Left Breast cellulitis. 2. Leukocytosis, likely secondary to infection in addition to her recent steroid therapy with prednisone. PLAN: She will continue on IV antibiotics. She is requesting a nebulizer and we will defer to her primary physician. I would also recommend a surgical consultation as she will likely need I&D. We will follow along with you. Thank you for this consultation.
[2017-08-19 23:16] VITALS: BP 117/75; PULSE 111; TEMP 36.4; O2SAT 95
[2017-08-20] MEDS: PIPERACILL/TAZOBAC IV 3.375 GM in DEXTROSE 5% 100ML 100 ML IV SCH ×3 (04:10→20:49)
[2017-08-20] MEDS: MoRPHine SULFATE 2 MG/ML CARP IV PRN ×2 (05:10→09:04)
[2017-08-20 07:17] VITALS: BP 114/74; PULSE 115; TEMP 36.6; O2SAT 91
[2017-08-20] MEDS ORDERED: CYCLOBENZAPRINE HCL 5 MG TAB PO ONE (07:30)
[2017-08-20] MEDS: BECLOMETHASONE DIP HFA 80 MCG 8.7G INH INH SCH (07:51)
[2017-08-20] MEDS: SERTRALINE HCL 50 MG TAB PO SCH (07:51)
[2017-08-20] MEDS: LACTOBACILLUS ACIDOPHILUS (FLORANEX) TAB PO SCH ×3 (07:51→18:33)
[2017-08-20] MEDS: ENOXAPARIN 30 MG/0.3 ML SYR SQ SCH ×2 (07:53→20:45)
[2017-08-20] MEDS: CLONAZEPAM 0.5 MG TAB PO SCH ×2 (07:54→20:45)
[2017-08-20 08:28] LABS: HEMATOCRIT 36.2 % (37-47); HEMOGLOBIN 12.3 g/dL (12.0-16.0); MEAN CELL VOLUME 82.6 fL (80-100); MEAN CORPUSCULAR HEMOGLOBIN 28.1 pg (25-34); MEAN PLATELET VOLUME 9.2 fL (7.4-10.4); PLATELET COUNT 292 K/uL (130-400); RED CELL DISTRIBUTION WIDTH CV 15.1 % (11.5-14.5); RED CELL DISTRIBUTION WIDTH SD 46.2 fL (36.4-46.3); WHITE BLOOD COUNT 35.48 K/uL (4.8-10.8)
[2017-08-20 08:57] LABS: CALCIUM 8.8 mg/dl (8.5-10.1); CREATININE 0.94 mg/dl (0.60-1.20); POTASSIUM 3.7 mmol/L (3.5-5.1)
[2017-08-20] MEDS ORDERED: FAMOTIDINE 20 MG TAB PO SCH (09:00)
[2017-08-20] MEDS: FAMOTIDINE 20 MG TAB PO SCH (09:03)
[2017-08-20] MEDS: NSS + 20MEQ KCL 1000ML 1,000 ML IV SCH (09:04)
[2017-08-20] MEDS ORDERED: VANCOMYCIN TROUGH ONE (11:30)
--- NOTE | 2017-08-20 11:38 | DIAGNOSTIC IMAGING REPORT ---
L BREAST LIMITED UNILATERAL CLINICAL HISTORY: 22 years-old Female presenting with left breast cellulitis, To R/O abscess on 08/20/2017. TECHNIQUE: Real-time grayscale Doppler ultrasound imaging of the left breast was performed for a focused evaluation at the site of clinical concern. Color Doppler ultrasound imaging was also performed. COMPARISON: 08/18/2017. FINDINGS: At the site of clinical interest in the left breast, diffuse skin thickening and subcutaneous edema noted. There is a vascular lobular hypoechoic well-defined mass measuring 6.1 x 4.6 x 7.1 cm in the subareolar region. This is incompletely characterized. IMPRESSION: 1. Extensive left breast skin thickening and subcutaneous edema. 2. Apparent vascular mass in the subareolar region. Internal vascularity is not consistent with an abscess. Given the clinical suspicion for abscess and presumed significant inflammatory change, this potentially could represent phlegmon though a neoplastic or other inflammatory process is not excluded. This is incompletely characterized and dedicated mammographic evaluation is necessary. Referral to women's imaging should be obtained. The report will be called/faxed according to standard departmental protocol. Electronically signed by: Chris Marcum M.D. 08/20/2017 11:36 AM Dictated Date/Time: 08/20/2017 11:33 AM
[2017-08-20] MEDS: VANCOMYCIN IV 1,000 MG in SODIUM CHLORIDE 0.9% 250ML 250 ML IV SCH ×2 (11:47→20:49)
--- NOTE | 2017-08-20 11:48 | Progress Note ---
Subjective Date of Service: Aug 20, 2017. Subjective repeat ultrasound done, mass now measuring larger - 6/1x4.6x7.1cm. surgery following. not consistent with abscess. remains on emperic abx. afebirle since admission. blood cultures negative to date but did receive 3 doses of doxy captain of guards. wbc remains elevated, slightly improved to 35 today. Problem List Medical Problems: (1) Asthma exacerbation Status: Acute (2) Hypokalemia Status: Acute (3) Mastitis Status: Acute (4) Sepsis Status: Acute Objective Vital Signs Date Time Temp Pulse Resp B/P (MAP) Pulse Ox O2 Delivery O2 Flow Rate FiO2 08/20/17 08:04 Room Air 08/20/17 07:17 36.6 115 16 114/74 (87) 91 Room Air 08/19/17 23:40 Room Air 08/19/17 23:16 36.4 111 16 117/75 (89) 95 Room Air 08/19/17 15:15 Room Air 08/19/17 15:04 36.7 101 16 106/65 (79) 94 Room Air Laboratory Results Item Value Date Time Blood Culture - Preliminary Resulted 08/18/17 1415 Blood NO GROWTH TO DATE. Blood Culture - Preliminary Resulted 08/18/17 1429 Blood NO GROWTH TO DATE. Last 24 Hours Test 08/20/17 08:06 08/20/17 11:37 White Blood Count 35.48 K/uL Red Blood Count 4.38 M/uL Hemoglobin 12.3 g/dL Hematocrit 36.2 % Mean Corpuscular Volume 82.6 fL Mean Corpuscular Hemoglobin 28.1 pg Mean Corpuscular Hemoglobin Concent 34.0 g/dl RDW Standard Deviation 46.2 fL RDW Coefficient of Variation 15.1 % Platelet Count 292 K/uL Mean Platelet Volume 9.2 fL Sodium Level 136 mmol/L Potassium Level 3.7 mmol/L Chloride Level 104 mmol/L Carbon Dioxide Level 26 mmol/L Anion Gap 6.0 mmol/L Blood Urea Nitrogen 11 mg/dl Creatinine 0.94 mg/dl Est Creatinine Clear Calc Drug Dose 88.2 ml/min Estimated GFR () 101.2 Estimated GFR (Non- 87.3 BUN/Creatinine Ratio 11.6 Random Glucose 96 mg/dl Calcium Level 8.8 mg/dl Assessment and Plan (1) Acute mastitis of left breast Assessment & Plan: continue abx for now, blood cultures negative. mass now larger, surgery following.
[2017-08-20] MEDS: ACETAMINOPHEN 325 MG TAB PO PRN ×2 (11:53→23:51)
[2017-08-20] MEDS: HYDROmorphone INJ 0.5 MG/0.5 ML SYR IV PRN ×3 (12:42→20:46)
[2017-08-20] MEDS: GABAPENTIN 100 MG CAP PO SCH ×2 (13:39→20:49)
--- NOTE | 2017-08-20 13:51 | Surgery Progress Note ---
Surgery Progress Note Date of Service Aug 20, 2017. Subjective patient states the breast pain is about the same, no change Still having moderate pain, redness, and swelling Had neck pain, spasm this morning causing severe discomfort. Had one time dose of Flexeril (history of neck spasm in the past) Objective Vital Signs: Date Time Temp Pulse Resp B/P (MAP) Pulse Ox O2 Delivery O2 Flow Rate FiO2 08/20/17 08:04 Room Air 08/20/17 07:17 36.6 115 16 114/74 (87) 91 Room Air 08/19/17 23:40 Room Air 08/19/17 23:16 36.4 111 16 117/75 (89) 95 Room Air 08/19/17 15:15 Room Air 08/19/17 15:04 36.7 101 16 106/65 (79) 94 Room Air General Appearance: WD/WN, no apparent distress Head: normocephalic, atraumatic Neck: trachea midline Respiratory/Chest: no respiratory distress, no accessory muscle use, + pertinent finding (Left breast swollen, larger then right breast with erythema of the lateral breast with tenderness on palpation, skin thickening, however no palpable evidnce of fluctuance.) Laboratory Results: Results Past 24 Hours Test 08/20/17 08:06 08/20/17 11:37 Range/Units White Blood Count 35.48 4.8-10.8 K/uL Red Blood Count 4.38 4.2-5.4 M/uL Hemoglobin 12.3 12.0-16.0 g/dL Hematocrit 36.2 37-47 % Mean Corpuscular Volume 82.6 80-100 fL Mean Corpuscular Hemoglobin 28.1 25-34 pg Mean Corpuscular Hemoglobin Concent 34.0 32-36 g/dl RDW Standard Deviation 46.2 36.4-46.3 fL RDW Coefficient of Variation 15.1 11.5-14.5 % Platelet Count 292 130-400 K/uL Mean Platelet Volume 9.2 7.4-10.4 fL Sodium Level 136 136-145 mmol/L Potassium Level 3.7 3.5-5.1 mmol/L Chloride Level 104 98-107 mmol/L Carbon Dioxide Level 26 21-32 mmol/L Anion Gap 6.0 3-11 mmol/L Blood Urea Nitrogen 11 7-18 mg/dl Creatinine 0.94 0.60-1.20 mg/dl Est Creatinine Clear Calc Drug Dose 88.2 ml/min Estimated GFR () 101.2 Estimated GFR (Non- 87.3 BUN/Creatinine Ratio 11.6 10-20 Random Glucose 96 70-99 mg/dl Calcium Level 8.8 8.5-10.1 mg/dl Vancomycin Level Trough 9.9 SEE COMMENT mcg/ml Assessment & Plan Left Breast Mastitis - leukocytosis of 35K slightly improved (37K yesterday) - afebrile overnight - tachycardic - repeat breast US showing larger mass, "apparent vascular mass in the subareolar region. Internal vascularity is not consistent with an abscess. Given the clinical suspicion for abscess and presumed significant inflammatory change, this potentially could represent phlegmon though a neoplastic or other inflammatory process is not excluded. This is incompletely characterized and dedicated mammographic evaluation is necessary." Plan: Given ultrasound findings would recommend further breast imaging. Do not believe patient would tolerate mammogram given amount of breast tenderness, swelling, and inflammation. Recommend breast MRI to further evaluate area of concern. Continue IV antibiotics Continue IV pain management continue symptomatic management: Warm compresses to breast Continue current medical management. Dr. Liu discussed case with Dr. Kristin Hernandez who recommended breast MRI and continuing IV antibiotics for 7-[address] Liu discussed with patient's mother the options of further management here , either back at home ([place]), vs tertiary center with Breast specialist. Medicine to coordinate breast MRI while patient is here as an inpatient.
--- NOTE | 2017-08-20 13:57 | Pharmacy Progress Note ---
Pharmacy Abx Dose Progress Nt Date of Service Aug 20, 2017. Pharmacy Dosing Scope The patient is currently receiving the following antimicrobial agents per Pharmacy consult: Vancomycin IV & Zosyn IV Objective Height (Feet): 5 Height (Inches): 7.00 Weight (Kilograms): 58.500 Vital Signs (Past 12Hrs) Vital Signs Past 12 Hours Date Time Temp Pulse Resp B/P (MAP) Pulse Ox O2 Delivery O2 Flow Rate FiO2 08/20/17 08:04 Room Air 08/20/17 07:17 36.6 115 16 114/74 (87) 91 Room Air Lab Results (24Hrs) Laboratory Tests (24 Hours) Test 08/20/17 08:06 White Blood Count 35.48 K/uL (4.8-10.8) *H Micro Results Date/Time Source Procedure Growth Status 08/18/17 14:29 Blood Blood Culture - Preliminary NO GROWTH TO DATE. Resulted 08/18/17 14:15 Blood Blood Culture - Preliminary NO GROWTH TO DATE. Resulted Assessment & Plan Assessment 22 year old female receiving Vancomycin and Zosyn for treatment of breast cellulitis/mastitis/possible abscess Day # 3 of antimicrobial therapy Plan Vancomycin IV * Trough level of 9.9mcg/mL is subtherapeutic. * Change to 1000 mg (17mg/kg) IV every 10 hours * Goal trough level 15-20 mcg/mL * Trough level ordered prior to 1200 dose on 08/22/17 * Note that she has not really improved, surgery following, now notations of possible abscess. Piperacillin/tazobactam * Continue 3.375g IV extended infusion every 8 hours for CrCl greater than 20 mL /min Pharmacy will continue to follow and will adjust dose/frequency as necessary. Thank you.
--- NOTE | 2017-08-20 15:21 | Hospitalist Progress Note ---
Hospitalist Progress Note Date of Service Aug 20, 2017. (Kayley Baltazar PA-C) Subjective Pt evaluation today including: conversation w/ patient, conversation w/ family , physical exam, chart review, lab review, review of studies, conversation w/ informatics consultant Pain: Significant with deep breaths, Left breast PO Intake: good Voiding: no voiding problems The patient was seen and examined this morning. Pt reports doing poorly today. Her mother is present at bedside. Her left breast is significantly painful and remains swollen. She is unsure if this is worsening today. Her pain is uncontrolled with morphine. Pt c/o muscle spasms in her mid upper back, involving her shoulders - a flexeril tablet helped to alleviate the spasm this morning. She is very anxious and begins to cry at the end of my exam. Discussion was help regarding next steps with surgery at bedside - initially it was discussed that we would proceed with an MRI for further imaging, however this will not be obtainable due to need to compress the breast. She would also not tolerate a mammogram due to swelling. We will possibly need a fine needle biopsy. Will continue antibiotics IV at this time, and aim for better pain control. Additional Comments: Constitutional: No fever, sweats or chills Eyes: No diplopia, no worsening or blurred vision ENT: normal hearing, no trouble swallowing Respiratory: No cough, sputum, dyspnea at rest or on exertion Chest: See HPI. Cardiovascular: No chest pain, tightness or palpitations Abdomen: No pain, nausea, vomiting, diarrhea or constipation Musculoskeletal: No joint pain, calf pain, swelling Neurologic: No weakness, numbness/tingling, or balance problems Psychiatric: No anxiety or depression Skin: No rash or itch (Kayley Baltazar PA-C) Objective Vital Signs Date Time Temp Pulse Resp B/P (MAP) Pulse Ox O2 Delivery O2 Flow Rate FiO2 08/20/17 08:04 Room Air 08/20/17 07:17 36.6 115 16 114/74 (87) 91 Room Air 08/19/17 23:40 Room Air 08/19/17 23:16 36.4 111 16 117/75 (89) 95 Room Air 08/19/17 15:15 Room Air 08/19/17 15:04 36.7 101 16 106/65 (79) 94 Room Air (Kayley Baltazar PA-C) Physical Exam Notes: General: awake, alert, no apparent distress Head: Normocephalic, atraumatic ENT: PERRL, EOMI, no pharyngeal exudate, mucous membranes moist Chest: Clear to auscultation, on room air, no adventitious breath sounds. Breast: Left breast with circumferential erythema surrounding the nipple and extending medially, slight extension toward axillary region but does not involve axilla or tail of [place]. Outlined with skin marker. + significantly tender with light palpation, no open area, no lesions, no topical abrasion, no ecchymosis. Right breast without involvement. Cardiac: Regular rate and rhythm, no murmur, no JVD, normal peripheral pulses, good capillary refill Abdominal: NABS x 4 quadrants, soft, nontender to palpation, no rebound, guarding or tenderness Extremities: Normal inspection, no peripheral edema or erythema, calfs nontender to palpation Psych: Normal mood and affect Neuro: AAO x 3, strength intact bilaterally and related 5/5, no motor deficits, speech is clear, no peripheral sensory deficits (Kayley Baltazar PA-C) Laboratory Results Last 24 Hours Test 08/20/17 08:06 08/20/17 11:37 White Blood Count 35.48 K/uL Red Blood Count 4.38 M/uL Hemoglobin 12.3 g/dL Hematocrit 36.2 % Mean Corpuscular Volume 82.6 fL Mean Corpuscular Hemoglobin 28.1 pg Mean Corpuscular Hemoglobin Concent 34.0 g/dl RDW Standard Deviation 46.2 fL RDW Coefficient of Variation 15.1 % Platelet Count 292 K/uL Mean Platelet Volume 9.2 fL Sodium Level 136 mmol/L Potassium Level 3.7 mmol/L Chloride Level 104 mmol/L Carbon Dioxide Level 26 mmol/L Anion Gap 6.0 mmol/L Blood Urea Nitrogen 11 mg/dl Creatinine 0.94 mg/dl Est Creatinine Clear Calc Drug Dose 88.2 ml/min Estimated GFR () 101.2 Estimated GFR (Non- 87.3 BUN/Creatinine Ratio 11.6 Random Glucose 96 mg/dl Calcium Level 8.8 mg/dl Vancomycin Level Trough 9.9 mcg/ml (Kayley Baltazar PA-C) Assessment and Plan Severe sepsis POA secondary to below Acute left breast cellulitis. - left breast US was negative for abscess- repeated US on 08/20 - 1. Extensive left breast skin thickening and subcutaneous edema. 2. Apparent vascular mass in the subareolar region. Internal vascularity is not consistent with an abscess. Given the clinical suspicion for abscess and presumed significant inflammatory change, this potentially could represent phlegmon though a neoplastic or other inflammatory process is not excluded. This is incompletely characterized and dedicated mammographic evaluation is necessary. Referral to women's imaging should be obtained. - No MRI at this point - consider FNB to determine if abscess/tissue bx pending breast appearance/sx control tomorrow. - WBC elevated at 35K only slightly improved- still with left shift - Continue Vanco/zosyn (started on 08/18) -failed doxycycline x 3 days as outpt - Fever curve trended downward - ID consulted - appreciate recs.- remain on abx - Change pain management to dilaudid 0.5 mg Q3Hprn, gabapentin 100 mg BID, flexeril 5 mg BID, k-pad, motrin prn. - encourage ambulation and incentive spirometry - A1C = 5.5 Vaginal Candidiasis - Will order 1x dose of fluconazole 150 mg PO today. Asthma without exacerbation - Continue proair and Qvar, duonebs QID prn for sob Anxiety - Continue klonopin 0.5 mg Q12H, trazodone 50 mg HS prn insomnia, sertraline 150 mg QAM - pt follows with psychiatry in [facility]. - Caution with sedation with addition of gabapentin, pain meds and flexeril as above. DVT ppx: lovenox Code STATUS: FULL CODE Disposition: From home, no CM needs anticipated, unknown discharge date. (Kayley Baltazar PA-C) Supervising Note Dr. Guajardo I performed a history and physical examination on the patient. I reviewed above note and agree with it. I discussed plan with APC and patient. During my face to face encounter with the patient, I answered all of the patient's questions. Concern over increasing size of erythema and mass on ultrasound. Will hold off breast MRI after having long discussion with multiple providers on team given that this would also be painful and may not provide any signifcant new information. Will continue to monitor clinically, while continuing IV antibiotics treatment. (Alon Guajardo M.D.)
[2017-08-20 15:25] VITALS: BP 100/62; PULSE 104; TEMP 36.9; O2SAT 91
[2017-08-20] MEDS ORDERED: FLUCONAZOLE 50 MG TAB PO ONE (15:45)
[2017-08-20] MEDS ORDERED: FLUCONAZOLE 100 MG TAB PO ONE (15:45)
[2017-08-20] MEDS ORDERED: NURSING VERBAL MED ORDER ONE (19:45)
[2017-08-20] MEDS: CYCLOBENZAPRINE HCL 5 MG TAB PO SCH (21:20)
[2017-08-20 21:28] VITALS: TEMP 37.5
[2017-08-20 22:56] VITALS: BP 123/67; PULSE 116; TEMP 37.8; O2SAT 93
[2017-08-20 23:45] VITALS: TEMP 37.8
[2017-08-21 00:36] VITALS: TEMP 37.9
[2017-08-21] MEDS: HYDROmorphone INJ 0.5 MG/0.5 ML SYR IV PRN ×4 (00:39→21:59)
[2017-08-21] MEDS: NSS + 20MEQ KCL 1000ML 1,000 ML IV SCH ×2 (02:05→19:28)
[2017-08-21] MEDS: PIPERACILL/TAZOBAC IV 3.375 GM in DEXTROSE 5% 100ML 100 ML IV SCH ×3 (04:13→20:45)
[2017-08-21] MEDS: VANCOMYCIN IV 1,000 MG in SODIUM CHLORIDE 0.9% 250ML 250 ML IV SCH ×2 (06:08→15:56)
[2017-08-21 06:48] LABS: HEMATOCRIT 33.1 % (37-47); HEMOGLOBIN 11.1 g/dL (12.0-16.0); MEAN CORPUSCULAR HEMOGLOBIN 27.8 pg (25-34); MEAN CORPUSCULAR HGB CONC 33.5 g/dl (32-36); MEAN PLATELET VOLUME 9.2 fL (7.4-10.4); PLATELET COUNT 338 K/uL (130-400); RED CELL DISTRIBUTION WIDTH CV 15.4 % (11.5-14.5); RED CELL DISTRIBUTION WIDTH SD 46.9 fL (36.4-46.3); WHITE BLOOD COUNT 24.12 K/uL (4.8-10.8)
[2017-08-21 07:20] LABS: CREATININE 0.93 mg/dl (0.60-1.20)
[2017-08-21 07:44] VITALS: BP 119/77; PULSE 109; TEMP 38; O2SAT 90
[2017-08-21] MEDS: ACETAMINOPHEN 325 MG TAB PO PRN (08:09)
[2017-08-21] MEDS: LACTOBACILLUS ACIDOPHILUS (FLORANEX) TAB PO SCH ×3 (08:27→18:45)
[2017-08-21] MEDS: BECLOMETHASONE DIP HFA 80 MCG 8.7G INH INH SCH (08:28)
[2017-08-21] MEDS: FAMOTIDINE 20 MG TAB PO SCH (08:29)
[2017-08-21] MEDS: SERTRALINE HCL 50 MG TAB PO SCH (08:29)
[2017-08-21] MEDS: GABAPENTIN 100 MG CAP PO SCH ×2 (08:29→21:16)
[2017-08-21] MEDS: CLONAZEPAM 0.5 MG TAB PO SCH ×2 (08:36→21:16)
[2017-08-21] MEDS: CYCLOBENZAPRINE HCL 5 MG TAB PO SCH ×2 (08:36→21:16)
[2017-08-21] MEDS: ENOXAPARIN 30 MG/0.3 ML SYR SQ SCH ×2 (08:36→21:16)
[2017-08-21 10:35] LABS: BASO % 0.7 %; BASO ABS # 0.18 K/uL (0-0.2); EOS % 1.3 %; EOS ABS # 0.32 K/uL (0-0.5); IG# 2.14 K/uL (0.00-0.02); LYMPH % 8.7 %; LYMPH ABS # 2.14 K/uL (1.2-3.4); MONO % 6.8 %; MONO ABS # 1.66 K/uL (0.11-0.59); NEUT % 73.8 %
--- NOTE | 2017-08-21 11:05 | Progress Note ---
Subjective Date of Service: Aug 21, 2017. Subjective Pt evaluation today including: conversation w/ patient, conversation w/ family , physical exam, chart review, lab review, conversation w/ hospice consultant pt seen in followup, still with discomfort and swelling left breast. Erythema is better, no drainage. fevers this am, tmax 38. blood cultures negative, breathing much better. wbc decreased to 24. Had surgery eval, discussed MRI but felt it would be too uncomfortable to tolerate. Now for aspirate however, pt is tearful stating she may refuse. She is agreeable to discuss with performing physician the details of procedure. tolerating abx. denies radiation of pain. all remaining ros reviewed and are negative. Mom not in room initially but did walk into room during my exam. I did speak with mom outside in [place] after exam. She states that she would like to proceed with aspiration but pt is nervous regarding needles and pain level. Problem List Medical Problems: (1) Asthma exacerbation Status: Acute (2) Hypokalemia Status: Acute (3) Mastitis Status: Acute (4) Sepsis Status: Acute Objective Vital Signs Date Time Temp Pulse Resp B/P (MAP) Pulse Ox O2 Delivery O2 Flow Rate FiO2 08/21/17 08:04 Room Air 08/21/17 07:44 38.0 109 16 119/77 (91) 90 Room Air 08/21/17 00:36 37.9 08/20/17 23:45 37.8 08/20/17 23:40 Nasal Cannula 2.0 08/20/17 22:56 37.8 116 16 123/67 (85) 93 Nasal Cannula 2.0 08/20/17 21:28 37.5 08/20/17 16:05 Room Air 08/20/17 15:25 36.9 104 18 100/62 (75) 91 Room Air Physical Exam General Appearance: WD/WN, no apparent distress, + pertinent finding (tearful at times) Eyes: normal inspection, EOMI Neck: supple Respiratory/Chest: lungs clear, normal breath sounds, no respiratory distress, no accessory muscle use Cardiovascular: regular rate, rhythm, no edema, no murmur Abdomen: non tender, soft Extremities: non-tender, no pedal edema Neurologic/Psychiatric: alert, oriented x 3 Skin: normal color Comments: erythema more pronounced since admission but decreased from line drawn yesterday. left breast with significant swelling, induration. no drainage. no warmth but tender to touch. more firm today. Laboratory Results Item Value Date Time Blood Culture - Preliminary Resulted 08/18/17 1429 Blood NO GROWTH TO DATE. Blood Culture - Preliminary Resulted 08/18/17 1415 Blood NO GROWTH TO DATE. Last 24 Hours Test 08/20/17 11:37 08/21/17 06:08 Vancomycin Level Trough 9.9 mcg/ml White Blood Count 24.12 K/uL Red Blood Count 3.99 M/uL Hemoglobin 11.1 g/dL Hematocrit 33.1 % Mean Corpuscular Volume 83.0 fL Mean Corpuscular Hemoglobin 27.8 pg Mean Corpuscular Hemoglobin Concent 33.5 g/dl Platelet Count 338 K/uL Mean Platelet Volume 9.2 fL Neutrophils (%) (Auto) 73.8 % Lymphocytes (%) (Auto) 8.7 % Monocytes (%) (Auto) 6.8 % Eosinophils (%) (Auto) 1.3 % Basophils (%) (Auto) 0.7 % Neutrophils # (Auto) 18.10 K/uL Lymphocytes # (Auto) 2.14 K/uL Monocytes # (Auto) 1.66 K/uL Eosinophils # (Auto) 0.32 K/uL Basophils # (Auto) 0.18 K/uL RDW Standard Deviation 46.9 fL RDW Coefficient of Variation 15.4 % Immature Granulocyte % (Auto) 8.7 % Immature Granulocyte # (Auto) 2.14 K/uL Nucleated RBC Absolute Count (auto) 0.00 K/uL Nucleated Red Blood Cells % 0.0 % Echinocytes 1+ Creatinine 0.93 mg/dl Est Creatinine Clear Calc Drug Dose 89.1 ml/min Estimated GFR () 102.5 Estimated GFR (Non- 88.5 Assessment and Plan (1) Acute mastitis of left breast Assessment & Plan: will continue emperic abx. had discussion with mom, pt and primary. I feel she will require a diagnostic procedure of some form, she does not want MRI. 2 ultrasounds have not confirmed abscess but clinically appears as though. I did explain to pt and mom she may ultimately have pain releif with procedure. I am concerned that abx alone will not be effective with fluid collection this large. will follow.
--- NOTE | 2017-08-21 13:11 | Surgery Progress Note ---
Surgery Progress Note Date of Service Aug 21, 2017. PATIENT EVALUATED AT 8 AM Subjective Post OP Day: hd # 3 pain is better controlled with Dilaudid Fever last night, Tmax this morning at 38.0 not much change in breast pain, redness has improved not ambulating in hallway just the room Objective Vital Signs: Date Time Temp Pulse Resp B/P (MAP) Pulse Ox O2 Delivery O2 Flow Rate FiO2 08/21/17 08:04 Room Air 08/21/17 07:44 38.0 109 16 119/77 (91) 90 Room Air 08/21/17 00:36 37.9 08/20/17 23:45 37.8 08/20/17 23:40 Nasal Cannula 2.0 08/20/17 22:56 37.8 116 16 123/67 (85) 93 Nasal Cannula 2.0 08/20/17 21:28 37.5 08/20/17 16:05 Room Air 08/20/17 15:25 36.9 104 18 100/62 (75) 91 Room Air General Appearance: WD/WN, no apparent distress Head: normocephalic, atraumatic Neck: trachea midline Respiratory/Chest: lungs clear, normal breath sounds, no respiratory distress, no accessory muscle use, + pertinent finding (left breast: erythema improved, markings present on breast for outlining previous erythema, still significantly edeamatous with tenderness on light palpation and skin thickening. again unable to assess fluctuance.) Cardiovascular: regular rate, rhythm, no murmur Laboratory Results: Results Past 24 Hours Test 08/21/17 06:08 Range/Units White Blood Count 24.12 4.8-10.8 K/uL Red Blood Count 3.99 4.2-5.4 M/uL Hemoglobin 11.1 12.0-16.0 g/dL Hematocrit 33.1 37-47 % Mean Corpuscular Volume 83.0 80-100 fL Mean Corpuscular Hemoglobin 27.8 25-34 pg Mean Corpuscular Hemoglobin Concent 33.5 32-36 g/dl Platelet Count 338 130-400 K/uL Mean Platelet Volume 9.2 7.4-10.4 fL Neutrophils (%) (Auto) 73.8 % Lymphocytes (%) (Auto) 8.7 % Monocytes (%) (Auto) 6.8 % Eosinophils (%) (Auto) 1.3 % Basophils (%) (Auto) 0.7 % Neutrophils # (Auto) 18.10 1.4-6.5 K/uL Lymphocytes # (Auto) 2.14 1.2-3.4 K/uL Monocytes # (Auto) 1.66 0.11-0.59 K/uL Eosinophils # (Auto) 0.32 0-0.5 K/uL Basophils # (Auto) 0.18 0-0.2 K/uL RDW Standard Deviation 46.9 36.4-46.3 fL RDW Coefficient of Variation 15.4 11.5-14.5 % Immature Granulocyte % (Auto) 8.7 % Immature Granulocyte # (Auto) 2.14 0.00-0.02 K/uL Nucleated RBC Absolute Count (auto) 0.00 0-0 K/uL Nucleated Red Blood Cells % 0.0 % Echinocytes 1+ Creatinine 0.93 0.60-1.20 mg/dl Est Creatinine Clear Calc Drug Dose 89.1 ml/min Estimated GFR () 102.5 Estimated GFR (Non- 88.5 Assessment & Plan Left Breast Mastitis - leukocytosis improved to 24K today however febrile overnight and this morning, Tmax 38 - repeat breast US 08/20/17 showing larger mass, "apparent vascular mass in the subareolar region. Internal vascularity is not consistent with an abscess. Given the clinical suspicion for abscess and presumed significant inflammatory change, this potentially could represent phlegmon though a neoplastic or other inflammatory process is not excluded. This is incompletely characterized and dedicated mammographic evaluation is necessary." Plan: Original plan was for breast MRI however patient would not be able to tolerated given severity of edema and pain Recommend US guided FNA/biopsy, this may alleviate patients pain and can determine appropriate antibiotic treatment, patient agreed upon procedure Continue IV Antibiotics Encouraged OOB to chair and ambulation Continue current medical management Dr. Liu has seen and examined patient, agrees with above
[2017-08-21 15:26] VITALS: BP 117/78; PULSE 105; TEMP 36.9; O2SAT 95
[2017-08-21] MEDS ORDERED: NURSING VERBAL MED ORDER ONE (16:15)
[2017-08-21 22:50] VITALS: BP 121/74; PULSE 106; TEMP 37.9; O2SAT 90
[2017-08-22] VITALS (7 sets, daily range): BP systolic 119–132; BP diastolic 71–82; PULSE 93–99; TEMP 36.6–37.8; O2SAT 90–97
[2017-08-22] MEDS: ACETAMINOPHEN 325 MG TAB PO PRN
[2017-08-22] MEDS: VANCOMYCIN IV 1,000 MG in SODIUM CHLORIDE 0.9% 250ML 250 ML IV SCH ×2 (02:19→12:43)
[2017-08-22] MEDS: PIPERACILL/TAZOBAC IV 3.375 GM in DEXTROSE 5% 100ML 100 ML IV SCH ×2 (04:11→12:43)
[2017-08-22] MEDS ORDERED: NURSING DECISION MEDICATION ORDER SCH (05:30)
[2017-08-22] MEDS: HYDROmorphone INJ 0.5 MG/0.5 ML SYR IV PRN ×4 (05:36→23:57)
--- NOTE | 2017-08-22 06:31 | HISTORY & PHYSICAL EXAMINATION ---
DATE OF ADMISSION: 08/22/2017 REASON FOR CONSULTATION: Left breast mastitis. HISTORY OF PRESENT ILLNESS: The patient is a 22-year-old female who has had approximately 6-7 days of left breast pain with subsequent significant erythema presenting to urgent care and given some doxycycline. The mastitis did worsen and she presented to the Emergency Room and was admitted with acute mastitis with an ultrasound on 08/18/2017 showing an area of approximately 5 x 3 cm with no specific fluid collection. This has enlarged and on 08/20/2017 was shown to be 4 x 6 cm. She did initially have an elevated white count and relatively severe diffuse cellulitis which has improved. She was set up to be seen in the breast clinic yesterday for possible needle aspiration, but with difficulties secondary to anxiety, this was not performed. Currently, she is on vancomycin and Zosyn. The patient has a history of asthma, no previous breast problems. FAMILY AND SOCIAL HISTORY: Noncontributory. ALLERGIES: SHE APPARENTLY HAD A REACTION TO AMOXICILLIN, but she is tolerating Zosyn well. MEDICATIONS: Include Klonopin, prednisone, Monodox, Zoloft, trazodone. REVIEW OF SYSTEMS: Review of other 10 systems other than HPI noncontributory and negative. PHYSICAL EXAMINATION: GENERAL: She is currently sitting in the chair. She is awake and alert. She is in no distress. She does appear somewhat anxious. HEENT: Grossly otherwise normal. NECK: Supple. LUNGS: She is breathing comfortably. SKIN: Her skin is normal color except on the left breast exam she has evidence where the breast was marked with the earlier cellulitis which is improving; however, she does have some areas of blotchy erythema. I do not feel significant induration in the breast and she does not have a specific area of fluctuance. Reportedly, the edema in the breast is much less; however, it is still larger than the right breast. I did review her ultrasounds as well as the images. ASSESSMENT AND PLAN: A 22-year-old female admitted with what appeared to be acute mastitis. On her ultrasound, she does not have what appears to be a specific abscess or fluid collection but does have an area which could be either phlegmonous or mass effect. I have discussed with the mother and patient the possible need for either a needle biopsy which would necessarily be with sedation versus operative intervention. I do believe in this situation, it may be best to transfer the patient to a tertiary care center with a dedicated breast service prior to engaging in any significant invasive operations in this situation. I will discuss this with the doctors involved with her care this morning.
--- NOTE | 2017-08-22 06:38 | Progress Note ---
Subjective Date of Service: Aug 21, 2017. Subjective Pt evaluation today including: conversation w/ patient, physical exam Late entry due to system being down. 22 yo female with left breast pain. Patietn reports no signifcant change in her pain. SHE NOTES THE SAME REDNESS on her breast. Patient also reports fever overnight. Patient denies nausea, vomiting, diarrhea. Problem List Medical Problems: (1) Asthma exacerbation Status: Acute (2) Hypokalemia Status: Acute (3) Mastitis Status: Acute (4) Sepsis Status: Acute Review of Systems Constitutional: + fever, No chills Eyes: No worsening of vision ENT: No hearing loss, No unusual epistaxis Respiratory: + shortness of breath, No cough Cardiac: No chest pain Abdomen: No pain, No nausea Musculoskeletal: No joint pain Neurologic: No memory loss Psychiatric: No depression symptoms Endo: No fatigue Skin: No rash All Other Systems: Reviewed and Negative Objective Vital Signs Date Time Temp Pulse Resp B/P (MAP) Pulse Ox O2 Delivery O2 Flow Rate FiO2 08/22/17 00:47 37.7 08/21/17 23:55 Nasal Cannula 2.0 08/21/17 22:50 37.9 106 16 121/74 (90) 90 Nasal Cannula 2.0 08/21/17 16:00 Room Air 08/21/17 15:26 36.9 105 16 117/78 (91) 95 Room Air 08/21/17 08:04 Room Air 08/21/17 07:44 38.0 109 16 119/77 (91) 90 Room Air Physical Exam General Appearance: WD/WN, no apparent distress Eyes: normal inspection ENT: normal ENT inspection Neck: supple, no adenopathy Respiratory/Chest: chest non-tender, lungs clear, normal breath sounds Cardiovascular: regular rate, rhythm, no edema Abdomen: normal bowel sounds, non tender, soft Extremities: normal range of motion Lymphatic: no adenopathy Comments: Breast: Left breast with circumferential erythema surrounding the nipple and extending medially,. Erythema appears decreased today. + significantly tender with light palpation, no open area, no lesions, no topical abrasion, no ecchymosis. Right breast without involvement. \ Exam was done in presence of nurse and family. Laboratory Results Last 24 Hours Test 08/22/17 04:44 Assessment and Plan 08/21 08/20 Severe sepsis POA secondary to below Acute left breast cellulitis. Patient does not appear to have significant clinical improvement. She had fever overnight. Erythema still present but has not worsened. Biopsy was recommended but patient refused procedure. Surgery recommended tertiary center. There has been pushback from [facility] as they feel like patient can be treated in our hospital. Will obtain a second opinion from different [facility] surgical provider to see if patient can be treated here will continue to monitor clinically. - left breast US was negative for abscess- repeated US on 08/20 - 1. Extensive left breast skin thickening and subcutaneous edema. 2. Apparent vascular mass in the subareolar region. Internal vascularity is not consistent with an abscess. Given the clinical suspicion for abscess and presumed significant inflammatory change, this potentially could represent phlegmon though a neoplastic or other inflammatory process is not excluded. This is incompletely characterized and dedicated mammographic evaluation is necessary. Referral to women's imaging should be obtained. - No MRI at this point - consider FNB to determine if abscess/tissue bx pending breast appearance/sx control \ - WBC elevated at 35K only slightly improved- still with left shift - Continue Vanco/zosyn (started on 08/18) -failed doxycycline x 3 days as outpt - Patient had fever yesterday - ID consulted - appreciate recs.- remain on abx - Change pain management to dilaudid 0.5 mg Q3Hprn, gabapentin 100 mg BID, flexeril 5 mg BID, k-pad, motrin prn. - encourage ambulation and incentive spirometry - A1C = 5.5 Vaginal Candidiasis - Order one dose of fluconazole Asthma without exacerbation - Continue proair and Qvar, duonebs QID prn for sob Anxiety - Continue klonopin 0.5 mg Q12H, trazodone 50 mg HS prn insomnia, sertraline 150 mg QAM - pt follows with psychiatry in [facility]. - Caution with sedation with addition of gabapentin, pain meds and flexeril as above. DVT ppx: lovenox Code STATUS: FULL CODE Disposition: From home, no CM needs anticipated, unknown discharge date. Spent 150 minutes in the care of this patient. This included but not limited to trying to coordinate biopsy/ I and D of possible abscess with our breast center. Discussing case with multiple providers. Trying to obtain transfer to tertiary center and updating family. Continued [facility] stay due to: multiple IV medications needed Discharge planning: uncertain
[2017-08-22] MEDS: BECLOMETHASONE DIP HFA 80 MCG 8.7G INH INH SCH (07:49)
[2017-08-22 08:02] LABS: HEMATOCRIT 34.3 % (37-47); HEMOGLOBIN 11.5 g/dL (12.0-16.0); MEAN CELL VOLUME 83.3 fL (80-100); MEAN CORPUSCULAR HEMOGLOBIN 27.9 pg (25-34); MEAN CORPUSCULAR HGB CONC 33.5 g/dl (32-36); PLATELET COUNT 344 K/uL (130-400); RED CELL DISTRIBUTION WIDTH CV 15.3 % (11.5-14.5); RED CELL DISTRIBUTION WIDTH SD 46.9 fL (36.4-46.3); WHITE BLOOD COUNT 17.71 K/uL (4.8-10.8)
[2017-08-22 08:30] LABS: CREATININE 0.94 mg/dl (0.60-1.20)
[2017-08-22] MEDS: ENOXAPARIN 30 MG/0.3 ML SYR SQ SCH ×2 (09:00→20:35)
[2017-08-22] MEDS: CLONAZEPAM 0.5 MG TAB PO SCH ×2 (09:00→20:35)
[2017-08-22] MEDS: GABAPENTIN 100 MG CAP PO SCH ×2 (09:05→20:36)
[2017-08-22] MEDS: SERTRALINE HCL 50 MG TAB PO SCH (09:05)
[2017-08-22] MEDS: CYCLOBENZAPRINE HCL 5 MG TAB PO SCH ×2 (09:05→20:36)
[2017-08-22] MEDS: FAMOTIDINE 20 MG TAB PO SCH (09:05)
[2017-08-22] MEDS: LACTOBACILLUS ACIDOPHILUS (FLORANEX) TAB PO SCH ×3 (09:05→18:09)
--- NOTE | 2017-08-22 10:15 | Progress Note ---
Subjective Date of Service: Aug 22, 2017. Subjective The patient remains with low-grade fevers overnight. Her T-max was 37.9. She remains empiric vancomycin and Zosyn. She appears to be tolerating these antibiotics well. Her white blood cell count continues to improve and is down to 17 today. She has had no additional steroids since admission to the hospital. Her blood cultures remain negative. I did have long discussion with the patient yesterday regarding anxiety repeat involving around the needle biopsy and aspiration her fluid collection. She was to be examined by breast surgery did see General surgery to discuss procedure. It was recommended at time that she be transferred to a tertiary care center that had a dedicated breast surgeon to undergo any additional diagnostic and therapeutic procedures. She was not eager to undergo any formal surgical procedure when we spoke yesterday. She also is not interested in undergoing breast MRI secondary to pain that could be associated with that. She remains on empiric antibiotics awaiting additional testing. No repeat imaging has been performed. Problem List Medical Problems: (1) Asthma exacerbation Status: Acute (2) Hypokalemia Status: Acute (3) Mastitis Status: Acute (4) Sepsis Status: Acute Objective Vital Signs Date Time Temp Pulse Resp B/P (MAP) Pulse Ox O2 Delivery O2 Flow Rate FiO2 08/22/17 08:23 Room Air 08/22/17 07:36 36.7 98 16 119/71 (87) 96 Room Air 08/22/17 00:47 37.7 08/21/17 23:55 Nasal Cannula 2.0 08/21/17 22:50 37.9 106 16 121/74 (90) 90 Nasal Cannula 2.0 08/21/17 16:00 Room Air 08/21/17 15:26 36.9 105 16 117/78 (91) 95 Room Air Laboratory Results Item Value Date Time Blood Culture - Preliminary Resulted 08/18/17 1429 Blood NO GROWTH TO DATE. Blood Culture - Preliminary Resulted 08/18/17 1415 Blood NO GROWTH TO DATE. Last 24 Hours Test 08/22/17 07:48 White Blood Count 17.71 K/uL Red Blood Count 4.12 M/uL Hemoglobin 11.5 g/dL Hematocrit 34.3 % Mean Corpuscular Volume 83.3 fL Mean Corpuscular Hemoglobin 27.9 pg Mean Corpuscular Hemoglobin Concent 33.5 g/dl RDW Standard Deviation 46.9 fL RDW Coefficient of Variation 15.3 % Platelet Count 344 K/uL Mean Platelet Volume 9.0 fL Creatinine 0.94 mg/dl Est Creatinine Clear Calc Drug Dose 88.2 ml/min Estimated GFR () 101.2 Estimated GFR (Non- 87.3 Assessment and Plan (1) Acute mastitis of left breast Assessment & Plan: Clinically she continues to present as though she has cellulitis early abscess formation with fevers and leukocytosis. She does appear to be responding to antibiotics however narrowing antibiotics will be difficult at this point as there are no positive cultures. I continue to believe that she would benefit from a diagnostic and therapeutic procedure as her ultrasound did not look typical for abscess formation on 2 separate ultrasounds. I am in agreement with surgery that transfer to a center with a dedicated breast service would be in the patient's best interest at this point.
[2017-08-22] MEDS ORDERED: NURSING VERBAL MED ORDER ONE ×3 (10:30→12:30)
--- NOTE | 2017-08-22 10:35 | Progress Note ---
Subjective Date of Service: Aug 22, 2017. Problem List Medical Problems: (1) Asthma exacerbation Status: Acute (2) Hypokalemia Status: Acute (3) Mastitis Status: Acute (4) Sepsis Status: Acute Objective Vital Signs Date Time Temp Pulse Resp B/P (MAP) Pulse Ox O2 Delivery O2 Flow Rate FiO2 08/22/17 08:23 Room Air 08/22/17 07:36 36.7 98 16 119/71 (87) 96 Room Air 08/22/17 00:47 37.7 08/21/17 23:55 Nasal Cannula 2.0 08/21/17 22:50 37.9 106 16 121/74 (90) 90 Nasal Cannula 2.0 08/21/17 16:00 Room Air 08/21/17 15:26 36.9 105 16 117/78 (91) 95 Room Air Laboratory Results Last 24 Hours Test 08/22/17 07:48 White Blood Count 17.71 K/uL Red Blood Count 4.12 M/uL Hemoglobin 11.5 g/dL Hematocrit 34.3 % Mean Corpuscular Volume 83.3 fL Mean Corpuscular Hemoglobin 27.9 pg Mean Corpuscular Hemoglobin Concent 33.5 g/dl RDW Standard Deviation 46.9 fL RDW Coefficient of Variation 15.3 % Platelet Count 344 K/uL Mean Platelet Volume 9.0 fL Creatinine 0.94 mg/dl Est Creatinine Clear Calc Drug Dose 88.2 ml/min Estimated GFR () 101.2 Estimated GFR (Non- 87.3 Assessment and Plan 08/22 Eythema has imrpoved significantly Patient WBC has also decreased tremendously Erythema is also decreased. Surgery recommends tertiary center. [facility] both [facility] does not feel like they can offer anything else that we have. [facility] states she may be able to drive to outpatient breast center and then be admitted to the hospital However gicen that her erythema improved, and WBCs have gone down. Will obtain repeat imaging. Will have primary surgery team (Dr. Liu) take a look at the image and discuss if patient needs to be transferred. 08/21 Patient does not appear to have significant clincal improvement. She had fever overnight. Erythema still present but has not worsened. Biopsy was recommended but patient refused procedure. Surgery recommended tertiary center. There has been pushback from tertiary center as they feel like patient can be treated in our hospital. will obtain a second opinion to see if patient can be treated here will continue to monitor clinically. 08/20 Severe sepsis POA secondary to below Acute left breast cellulitis. - left breast US was negative for abscess- repeated US on 08/20 - 1. Extensive left breast skin thickening and subcutaneous edema. 2. Apparent vascular mass in the subareolar region. Internal vascularity is not consistent with an abscess. Given the clinical suspicion for abscess and presumed significant inflammatory change, this potentially could represent phlegmon though a neoplastic or other inflammatory process is not excluded. This is incompletely characterized and dedicated mammographic evaluation is necessary. Referral to women's imaging should be obtained. - No MRI at this point - consider FNB to determine if abscess/tissue bx pending breast appearance/sx control tomorrow. - WBC elevated at 35K only slightly improved- still with left shift - Continue Vanco/zosyn (started on 08/18) -failed doxycycline x 3 days as outpt - Fever curve trended downward - ID consulted - appreciate recs.- remain on abx - Change pain management to dilaudid 0.5 mg Q3Hprn, gabapentin 100 mg BID, flexeril 5 mg BID, k-pad, motrin prn. - encourage ambulation and incentive spirometry - A1C = 5.5 Vaginal Candidiasis - Will order 1x dose of fluconazole 150 mg PO today. Asthma without exacerbation - Continue proair and Qvar, duonebs QID prn for sob Anxiety - Continue klonopin 0.5 mg Q12H, trazodone 50 mg HS prn insomnia, sertraline 150 mg QAM - pt follows with psychiatry in [facility]. - Caution with sedation with addition of gabapentin, pain meds and flexeril as above. DVT ppx: lovenox Code STATUS: FULL CODE Disposition: From home, no CM needs anticipated, unknown discharge date.
[2017-08-22] MEDS ORDERED: VANCOMYCIN TROUGH ONE (11:30)
[2017-08-22] MEDS ORDERED: MoRPHine SULFATE 4 MG/ML 1 ML CARP\\VIAL IV ONE (11:45)
--- NOTE | 2017-08-22 11:59 | Surgery Progress Note ---
Surgery Progress Note Date of Service Aug 22, 2017. Subjective Post OP Day: HD # 4 patient states the breast pain is not as severe, redness has improved but still has patchy areas of redness and now skin peeling. Swelling better but still present. +fevers, Tmax 37.9 Changes from previous examination yesterday 08/21/2017 Obtained a second opinion from Dr. Chen general surgery, Dr. Chen recommend transfer to tertiary facility to be evaluated and managed by breast specialist. Dr. Guajardo states there has been difficulty getting patient transferred to [place] as they feel patient could be treated at our facility. [place] has appointment available at their breast center tomorrow morning at 10 am in which patient could have biopsy/aspiration procedure and then be admitted to hospital for further management. Unfortunately our breast center is booked until next week. Objective Vital Signs: Date Time Temp Pulse Resp B/P (MAP) Pulse Ox O2 Delivery O2 Flow Rate FiO2 08/22/17 08:23 Room Air 08/22/17 07:36 36.7 98 16 119/71 (87) 96 Room Air 08/22/17 00:47 37.7 08/21/17 23:55 Nasal Cannula 2.0 08/21/17 22:50 37.9 106 16 121/74 (90) 90 Nasal Cannula 2.0 08/21/17 16:00 Room Air 08/21/17 15:26 36.9 105 16 117/78 (91) 95 Room Air General Appearance: WD/WN, no apparent distress Head: normocephalic, atraumatic Neck: trachea midline Respiratory/Chest: no respiratory distress, no accessory muscle use, + pertinent finding (left breast with moderate edema still present, erythema improved compared to yesterday and still within the markings of prior cellulitis , patchy areas of erythema with skin peeling. No evidence of familia induration or fluctuance. Skin thickening has improved. ) Laboratory Results: Results Past 24 Hours Test 08/22/17 07:48 08/22/17 11:30 Range/Units White Blood Count 17.71 4.8-10.8 K/uL Red Blood Count 4.12 4.2-5.4 M/uL Hemoglobin 11.5 12.0-16.0 g/dL Hematocrit 34.3 37-47 % Mean Corpuscular Volume 83.3 80-100 fL Mean Corpuscular Hemoglobin 27.9 25-34 pg Mean Corpuscular Hemoglobin Concent 33.5 32-36 g/dl RDW Standard Deviation 46.9 36.4-46.3 fL RDW Coefficient of Variation 15.3 11.5-14.5 % Platelet Count 344 130-400 K/uL Mean Platelet Volume 9.0 7.4-10.4 fL Creatinine 0.94 0.60-1.20 mg/dl Est Creatinine Clear Calc Drug Dose 88.2 ml/min Estimated GFR () 101.2 Estimated GFR (Non- 87.3 Assessment & Plan 22 year-old female with acute left breast mastitis. Originally presented with elevated WBC of 36K (remote history of high dose steroid for asthma exacerbation ). WBC slowly improved over the next two days of hospitalization. WBC improving well with IV Zosyn and IV Vancomycin however still elevated at 17K. Patient has been intermittently febrile. Patient has had two breast US which showed a focal irregular hypoechoic 5.5 x 5.2x 3.7 cm masslike region with internal vascularity in the subareolar region and repeat US showed increasing size of mass. NO drainable fluid collection. Concern for possible phlegmon in presence of neoplasm or inflammatory process can not be excluded. Recommend breast MRI as mammogram felt to be unobtainable due to patients breast pain , but MRI unobtainable as this also involves breast manipulation and compression. Therefore, breast biopsy via US recommended on 08/21/2017 however patient refused. Unfortunately there is no available opening for another biopsy at our breast center until next week. Plan: Our services, along with Dr. Chen with [facility] general surgery, and Infectious Disease all recommend patient to be transferred to Tertiary center for further evaluation and management by breast specialist. Again, our breast center unavailable for further procedure until next week. [facility] can have patient drive to their breast center tomorrow morning for procedure and then admit to hospital following. Believe this is best option for patient as there is complex findings on US and patient still intermittently febrile on IV antibiotics. Feel it would be in the best interest of the patient to be evaluated by breast specialist and care managed by breast center. Discussed this option with the family and patient who agree with further evaluation by breast center/specialist Continue current medical management until discharge Continue IV antibiotics Patient is stable to be discharged home and then travel to [place] tomorrow morning for breast center appointment at [address] Liu has seen and examined patient, agrees with above.
--- NOTE | 2017-08-22 12:09 | DIAGNOSTIC IMAGING REPORT ---
LEFT BREAST ULTRASONOGRAPHY CLINICAL HISTORY: left breast cellulitis COMPARISON STUDY: No previous studies for comparison. FINDINGS: With thin the left subareolar region, there is a 7.2 x 6.1 x 2.1 cm mildly hypoechoic avascular mass. Given the presenting symptoms, this is likely inflammatory. This is relatively similar in size to the preceding study. Also evident is a small cystic collection within the skin immediately beneath the area of maximal erythema. This measures 8 x 3 x 6 mm. There is left breast skin thickening in the area of erythema. IMPRESSION: 1. Persistent left breast skin thickening and edema 2. Persistent hypoechoic avascular mass within the left subareolar region measuring 7.2 x 6.1 x 2.1 cm. Although nonspecific, given the clinical presentation, this is likely infectious/inflammatory. Continued clinical and imaging follow-up subsequent to antibiotic therapy is recommended. Electronically signed by: Tal Flores M.D. 08/22/2017 12:08 PM Dictated Date/Time: 08/22/2017 12:05 PM
[2017-08-22] MEDS ORDERED: IBUPROFEN 600 MG TAB PO ONE (13:00)
--- NOTE | 2017-08-22 13:21 | Pharmacy Progress Note ---
Pharmacy Abx Dose Short Note Date of Service Aug 22, 2017. Assessment & Plan Ms. García's trough at [facility] came back therapeutic, 16.3mcg/mL. Given her stable renal fxn and therapeutic trough will continue dose and interval. No further lvls ordered at this juncture. If renal fxn or clinical status decompensates it may prove arredondo to order a vanco lvl. Pharmacy will continue to follow and will adjust dose/frequency as necessary. Thank you.
[2017-08-22] MEDS: LEVALBUTEROL 1.25MG/3ML NEB INH SCH ×2 (14:29→20:04)
--- NOTE | 2017-08-22 14:42 | Discharge Instructions ---
Discharge Instructions Date of Service Aug 22, 2017. Admission Reason for Admission: Acute Mastitis Of Left Breast Discharge Discharge Diagnosis / Problem: Acute Mastitis of left breast Discharge Goals Goal(s): Decrease discomfort, Improve function Activity Recommendations Activity Limitations: as noted below Lifting Limitations: gradually increase as tolerated . Instructions / Follow-Up Instructions / Follow-Up Patient has an appointment on 08/23/17 at 10:00 AM Location: [address] [place] [address]. [address], Entrance [place] [id number]. . Patient will then be admitted after the procedure. She will be admitted and will be under the care of Dr. Brown. Patient was on Zosyn and Vanco while in [facility]. She was switched to doxycycline and Levaquin on day of discharge to cover her antibiotic needs as she travels to [place]. Current Hospital Diet Patient's current hospital diet: Regular Diet Discharge Diet Recommended Diet: Regular Diet Pending Studies Studies pending at discharge: no Laboratory Results Hemoglobin A1c Test 08/19/17 06:02 Range/Units Estimated Average Glucose 111 mg/dl Hemoglobin A1c 5.5 4.5-5.6 % Medical Emergencies . Who to Call and When: Medical Emergencies: If at any time you feel your situation is an emergency, please call 911 immediately. . Non-Emergent Contact Non-Emergency issues call your: Primary Care Provider Call Non-Emergent contact if: you have any medication questions . . "Provider Documentation" section prepared by Alon Guajardo. .
[2017-08-22] MEDS ORDERED: LEVOFLOXACIN 500 MG TAB PO ONE (20:00)
[2017-08-22] MEDS: DOXYCYCLINE HYCLATE 100 MG CAP PO SCH (20:36)
[2017-08-22] MEDS ORDERED: BECLOMETHASONE DIP HFA 80 MCG 8.7G INH INH SCH (21:00)
--- NOTE | 2017-08-22 21:24 | Discharge Summary ---
Discharge Summary Date of Service Aug 22, 2017. Discharge Summary Admission Date: Aug 18, 2017 at 16:14 Discharge Disposition: Acute care facility Principal Diagnosis: Left breast mastitis Consultations: ID General Surgery Our services, along with Dr. Chen with [facility], and Infectious Disease all recommend patient to be transferred to Tertiary center for further evaluation and management by breast specialist. Again, our breast center unavailable for further procedure until next week. [facility] can have patient drive to their breast center tomorrow morning for procedure and then admit to hospital following. Believe this is best option for patient as there is complex findings on US and patient still intermittently febrile on IV antibiotics. Feel it would be in the best interest of the patient to be evaluated by breast specialist and care managed by breast center. Discussed this option with the family and patient who agree with further evaluation by breast center/specialist Continue current medical management until discharge Continue IV antibiotics Patient is stable to be discharged home and then travel to [place] tomorrow morning for breast center appointment at 10 am. Discharge Exam All exams were done in presence of nurse and family. Physical exam Head: Normocephalic, atraumatic ENT: PERRL, EOMI, no pharyngeal exudate, mucous membranes moist Chest: Clear to auscultation, on room air, no adventitious breath sounds. Breast: Left breast with circumferential erythema surrounding the nipple and extending medially. + significantly tender with light palpation, no open area, no lesions, no topical abrasion, no ecchymosis. Right breast without involvement. Cardiac: Regular rate and rhythm, no murmur, no JVD, normal peripheral pulses, good capillary refill Abdominal: NABS x 4 quadrants, soft, nontender to palpation, no rebound, guarding or tenderness Extremities: Normal inspection, no peripheral edema or erythema, calfs nontender to palpation Psych: Normal mood and affect Neuro: AAO x 3, strength intact bilaterally and related 5/5, no motor deficits, speech is clear, no peripheral sensory deficits Review of Systems: Constitutional: + fever Eyes: No worsening of vision, No eye pain ENT: No hearing loss, No unusual epistaxis Respiratory: No cough Cardiovascular: No chest pain Abdomen: No pain Musculoskeletal: No joint pain Neurologic: No memory loss Psychiatric: No depression symptoms Endocrine: No fatigue Hematologic / Lymphatic: No abnormal bleeding/bruising Integumentary: No rash Hospital Course Severe sepsis POA secondary to below Acute left breast cellulitis. Patient admitted with left breast mastitis. Patient treated with IV vanco and zosyn -Patient had failed doxy as outpatient prior to admission WBC peaked at 38k. Today decreased to 17. Patient today feels mildly improved in regards to pain. Breast continued to have erythema. During past 48 hours, patient has continued to have fever overnight She had fever overnight. Unable to obtain biopsy and I and D at this facility. Surgery and ID recommended tertiary center with Breast surgeon. - left breast US was negative for abscess- repeated US on 08/20 - 1. Extensive left breast skin thickening and subcutaneous edema. 2. Apparent vascular mass in the subareolar region. Internal vascularity is not consistent with an abscess. Given the clinical suspicion for abscess and presumed significant inflammatory change, this potentially could represent phlegmon though a neoplastic or other inflammatory process is not excluded. This is incompletely characterized and dedicated mammographic evaluation is necessary. Referral to women's imaging should be obtained. - Patient had fever yesterday - ID consulted - appreciate recs.- remain on abx - Pain management dilaudid 0.5 mg Q3Hprn, gabapentin 100 mg BID, flexeril 5 mg BID, k-pad, motrin prn. - encourage ambulation and incentive spirometry - A1C = 5.5 Vaginal Candidiasis - Order one dose of fluconazole Asthma without exacerbation - Continue proair and Qvar, duonebs QID prn for sob Anxiety - Continue klonopin 0.5 mg Q12H, trazodone 50 mg HS prn insomnia, sertraline 150 mg QAM - pt follows with psychiatry in [facility]. - Caution with sedation with addition of gabapentin, pain meds and flexeril as above. DVT ppx: lovenox Code STATUS: FULL CODE Disposition: Will be discharged and sent to breast center in [place]. Under care of Dr. Brown. Case was discussed with Dr. Brown who was kind enough to accept this case. Patient will take an oral dose of Levaquin and doxycycline to cover her as she drives to [place]. Total Time Spent: Greater than 30 minutes This includes examination of the patient, discharge planning, medication reconciliation, and communication with other providers. Discharge Instructions Please refer to the electronic Patient Visit Report (Discharge Instructions) for additional information. Follow-Up Patient should follow up with [facility] in [place] once this issue has resolved.
[2017-08-22] MEDS ORDERED: QVRINH80 INH (21:26)
[2017-08-23] MEDS: DOXYCYCLINE HYCLATE 100 MG CAP PO SCH (05:11)
[2017-08-23] MEDS: HYDROmorphone INJ 0.5 MG/0.5 ML SYR IV PRN (05:12)
== END 2017-08-23 06:28 | disposition short-term general hospital (02) | DRG 600 ==
LOC: C.EDB 13:32 → C.MSW 16:14 → ENRESERV 16:30
PROVIDERS: ADMIT Internal Medicine; ATTEND Internal Medicine Sports Medicine
DX: N61.0 Mastitis without abscess (principal); A41.9 Sepsis, unspecified organism; R65.20 Severe sepsis without septic shock; E87.6 Hypokalemia; F41.9 Anxiety disorder, unspecified; D72.829 Elevated white blood cell count, unspecified; J45.909 Unspecified asthma, uncomplicated; B37.3 Candidiasis of vulva and vagina; Z88.1 Allergy status to other antibiotic agents